=== PATIENT | female | born 1955 | race Caucasian/White ===

== ENCOUNTER 2016-09-27 12:34 | Inpatient (IN) | payer BC, MEDICARE ==
[~2016-09-27] VITALS: Ht 144.8 cm; Wt 63.5 kg
[~2016-09-27 12:34] MED LIST: ACIP20TA19 PO; AMOX875 PO; AZAT50 PO; BIAX500T PO; LORA-392 PO; LYRI50CA2 PO; OMEP20CA5 PO; PRED5 PO; SYMBICORT INH; TESS200C PO; TYLE500T PO; [UNRECOGNIZED DRUG - CODE] SQ
[2016-09-27 13:41] VITALS: BP 121/57; PULSE 101; RESP 16; TEMP 99.7; O2SAT 99
[2016-09-27] MEDS ORDERED: SODIUM CHLOR 0.9% 1000 ML INJ 1,000 ML IV SCH (13:57)
[2016-09-27] MEDS ORDERED: ONDANSETRON HCL 4 MG/2 ML VIAL IVP ONE (14:00)
[2016-09-27] MEDS ORDERED: SODIUM CHLORIDE 0.9% FLUSH 10 ML FLUSH IV FLUSH PRN ×2 (14:00→17:15)
--- NOTE | 2016-09-27 14:27 | PD ---
HPI Chief Complaint: Abdominal Pain Time Seen by Provider: 14:00 Travel History International Travel<30 days: No Contact w/Intl Traveler<30days: No Traveled to known affect area: No History of Present Illness HPI Patient comes in complaining of periumbilical abdominal pain that radiates throughout her abdomen that she awoke with around 2 AM today. Patient having associated generalized weakness, nausea, vomiting, and diarrhea. Patient denies any blood in vomit or diarrhea. Reports vomiting is nonbilious. Reports pain is crampy/burning like in nature throughout her abdomen. Patient states she does have lupus. Patient reports associated subjective fevers. Denies any chest pain, shortness of breath, loss change in bowel or bladder, headaches, or being around anyone else with similar. Patient reports she's had a cholecystectomy, small bowel resection secondary to obstruction, and hysterectomy. Patient is uncertain if she has had an appendectomy. PFSH Past Medical History Arthritis: No Asthma: No Autoimmune Disease: No Blood Disorders: No Anxiety: Yes Depression: Yes Heart Rhythm Problems: No Cancer: No Cardiovascular Problems: Yes (MVP) High Cholesterol: No Chemotherapy: No Chest Pain: No Congestive Heart Failure: No COPD: No Diabetes: No Diminished Hearing: No Endocrine: No Gastrointestinal Disorders: Yes GERD: Yes Glaucoma: No Hepatitis: No Hiatal Hernia: Yes Hypertension: No Immune Disorder: Yes (LUPUS SYSTEMIC) Kidney Stones: No Musculoskeletal: Yes (2004 COMPRESSION FX THORACI SPINE R 10TH VERTEBRAE) Neurologic: Yes Psychiatric: No Myocardial Infarction: No Radiation Therapy: No Renal Failure: Yes (LUPUS INVOLVING THE KIDNEYS 1979) Seizures: Yes (2004 zoloft AND EFFEXOR RELATED) Sickle Cell Disease: No Sleep Apnea: No Thyroid Disease: No Ulcer: No ?: Not Past Surgical History Abdominal Surgery: Yes (SM BOWEL RESECTION) AICD: No Cardiac Surgery: No Section: Yes Cholecystectomy: Yes Ear Surgery: No Endocrine Surgery: No Eye Surgery: No Genitourinary Surgery: No Gynecologic Surgery: Yes Hysterectomy: Yes Joint Replacement: No Oral Surgery: Yes (wisdom tooth extraction) Pacemaker: No Thoracic Surgery: No Social History Alcohol Use: No Tobacco Use: No (JUST QUIT ) Substance Use: No Allergies-Medications (Allergen,Severity, Reaction): Coded Allergies: Celexa (Verified Allergy, Severe, 09/27/16) Cipro (Verified Allergy, Severe, 09/27/16) Demerol (Verified Allergy, Severe, 09/27/16) Effexor (Verified Allergy, Severe, 09/27/16) Levaquin (Verified Allergy, Severe, 09/27/16) Phenergan (Verified Allergy, Severe, 09/27/16) SSRI-Serotonin Reuptake Inhib (Verified Allergy, Severe, 09/27/16) Sulfa (Verified Allergy, Severe, 09/27/16) Zoloft (Verified Allergy, Severe, 09/27/16) Reported Meds & Prescriptions Reported Meds & Active Scripts Active Reported Vitamin D3 (Cholecalciferol) 1,000 Unit Tab 1,000 Units PO DAILY Vitamin B Complex (B-Complex Vitamins) 1 Tab 1 Tab PO DAILY Ativan (Lorazepam) 0.5 Mg Tab 0.5 Mg PO DAILY PRN Ativan (Lorazepam) 1 Mg Tab 1 Mg PO HS Aleve (Naproxen Sodium) 220 Mg Tab 220 Mg PO BID Plaquenil (Hydroxychloroquine Sulfate) 200 Mg Tab 200 Mg PO BID Take with food Prednisone 5 Mg Tab 7.5 Mg PO DAILY Review of Systems Except as stated in HPI: all other systems reviewed are Neg Physical Exam Narrative GENERAL: Well-developed, overly nourished, in no acute distress, and non-ill appearing. SKIN: Focused skin assessment warm and dry. HEAD: Atraumatic. Normocephalic. EYES: Pupils equal and round. EOMI. No scleral icterus. No injection or drainage. ENT: No nasal bleeding or discharge. Mucous membranes pink and moist. NECK: Trachea midline. No JVD. Supple. No nuclear rigidity. CARDIOVASCULAR: Regular rate and rhythm. No murmur appreciated. RESPIRATORY: No accessory muscle use. No respiratory distress. Clear to auscultation. Breath sounds equal bilaterally. GASTROINTESTINAL: Abdomen soft, nondistended. Hepatic and splenic margins not palpable. Normal bowel sounds 4. No pulsatile mass. She reports tenderness throughout her abdomen to palpation. MUSCULOSKELETAL: No obvious deformities. No clubbing. No cyanosis. No edema. Full range of motion. NEUROLOGICAL: Awake and alert. No obvious cranial nerve deficits. Motor grossly within normal limits. Normal speech. PSYCHIATRIC: Appropriate mood and affect; insight and judgment normal. Data Data Last Documented VS Vital Signs Date Time Temp Pulse Resp B/P Pulse Ox O2 Delivery O2 Flow Rate FiO2 09/27/16 16:00 99.9 90 18 112/68 98 Room Air Orders Complete Blood Count With Diff (09/27/16 13:57) Comprehensive Metabolic Panel (09/27/16 13:57) Lipase (09/27/16 13:57) Prothrombin Time / Inr (Pt) (09/27/16 13:57) Act Partial Throm Time (Ptt) (09/27/16 13:57) Urinalysis - C+S If Indicated (09/27/16 13:57) Ct Abd/Pel W Iv Contrast(Rout) (09/27/16 13:57) Iv Access Insert/Monitor (09/27/16 13:57) Ecg Monitoring (09/27/16 13:57) Oximetry (09/27/16 13:57) Ondansetron Inj (Zofran Inj) (09/27/16 14:00) Sodium Chlor 0.9% 1000 Ml Inj (Ns 1000 M (09/27/16 13:57) Sodium Chloride 0.9% Flush (Ns Flush) (09/27/16 14:00) Electrocardiogram (09/27/16 13:57) Chest, Single Ap (09/27/16 13:57) Influenzae A/B Antigen (09/27/16 14:15) Potassium Phosphate Inj (Potassium Phosp (09/27/16 15:15) Potassium Chloride (Kcl) (09/27/16 15:15) Iohexol 350 Inj (Omnipaque 350 Inj) (09/27/16 15:39) Potassium Chlor 20 Meq Premix (Kcl 20 Me (09/27/16 16:15) Admit Order (Ed Use Only) (09/27/16 16:49) Sodium Chlor 0.9% 1... W/Potassium Chlor (09/27/16 17:00) Labs Laboratory Tests Test 09/27/16 14:21 White Blood Count 14.4 TH/MM3 Red Blood Count 4.86 MIL/MM3 Hemoglobin 15.5 GM/DL Hematocrit 45.4 % Mean Corpuscular Volume 93.4 FL Mean Corpuscular Hemoglobin 31.8 PG Mean Corpuscular Hemoglobin 34.0 % Concent Red Cell Distribution Width 15.0 % Platelet Count 355 TH/MM3 Mean Platelet Volume 7.0 FL Neutrophils (%) (Auto) 86.2 % Lymphocytes (%) (Auto) 3.1 % Monocytes (%) (Auto) 9.6 % Eosinophils (%) (Auto) 0.7 % Basophils (%) (Auto) 0.4 % Neutrophils # (Auto) 12.5 TH/MM3 Lymphocytes # (Auto) 0.4 TH/MM3 Monocytes # (Auto) 1.4 TH/MM3 Eosinophils # (Auto) 0.1 TH/MM3 Basophils # (Auto) 0.1 TH/MM3 CBC Comment DIFF FINAL Differential Comment Prothrombin Time 11.3 SEC Prothromb Time International 1.0 RATIO Ratio Activated Partial 27.1 SEC Thromboplast Time Sodium Level 139 MEQ/L Potassium Level 2.9 MEQ/L Chloride Level 106 MEQ/L Carbon Dioxide Level 23.0 MEQ/L Anion Gap 10 MEQ/L Blood Urea Nitrogen 16 MG/DL Creatinine 0.77 MG/DL Estimat Glomerular Filtration 77 ML/MIN Rate Random Glucose 95 MG/DL Calcium Level 8.2 MG/DL Total Bilirubin 0.6 MG/DL Aspartate Amino Transf 19 U/L (AST/SGOT) Alanine Aminotransferase 30 U/L (ALT/SGPT) Alkaline Phosphatase 67 U/L Total Protein 6.7 GM/DL Albumin 3.5 GM/DL Lipase 68 U/L [facility] Medical Decision Making Medical Screen Exam Complete: Yes Emergency Medical Condition: Yes Interpretation(s) EKG reviewed by Dr. Chen, shows sinus rhythm with ventricular rate of 98. No STEMI. Differential Diagnosis Gastroenteritis, electrolyte abnormality, appendicitis, small bowel obstruction , diverticulitis, colitis, gastroenteritis, other Narrative Course Patient is unable tolerate IV potassium order was changed to normal saline with potassium supplement. Patient seen and examined. Initial laboratory radiologic studies were obtained and reviewed with the exception of the UA and influenza that is currently pending. Discussed patient with Dr. Chen, who saw and evaluated patient and recommends having patient placed in observation secondary to abnormal findings. Patient was hydrated with IV fluids, potassium was replaced, given Zofran for nausea. Discussed all findings and plan of care with patient, was agreeable for admission. Dr. Chen spoke with the admitting physician Dr. Bellamy, who is agreeable to admit patient. Diagnosis Primary Impression: Enteritis Additional Impression: Hypokalemia Admitting Information Admitting Physician Requests: Observation Condition: Stable Juan Barba Sep 27, 2016 14:27
[2016-09-27 14:31] LABS: AUTOMATED NEUTROPHIL # 12.5 TH/MM3 (1.8-7.7); BASOPHIL # 0.1 TH/MM3 (0-0.2); BASOPHIL % 0.4 % (0.0-2.0); EOSINOPHIL # 0.1 TH/MM3 (0-0.4); EOSINOPHIL % 0.7 % (0.0-4.0); HEMATOCRIT 45.4 % (35.0-46.0); HEMO FLAGS DIFF FINAL; LYMPH % 3.1 % (9.0-44.0); LYMPHOCYTE # 0.4 TH/MM3 (1.0-4.8); MEAN CELL VOLUME 93.4 FL (80.0-100.0); MEAN CORPUSCULAR HEMOGLOBIN 31.8 PG (27.0-34.0); MONO % 9.6 % (0.0-8.0); NEUT % 86.2 % (16.0-70.0); PLATELET COUNT 355 TH/MM3 (150-450); RED BLOOD COUNT 4.86 MIL/MM3 (4.00-5.30); WHITE BLOOD COUNT 14.4 TH/MM3 (4.0-11.0)
[2016-09-27 14:45] LABS: APTT (PATIENT) 27.1 SEC (24.3-30.1); PROTHROMBIN TIME - PATIENT 11.3 SEC (9.8-11.6)
[2016-09-27 14:52] LABS: ALKALINE PHOSPHATASE 67 U/L (45-117); ALT (GPT) 30 U/L (10-53); ANION GAP 10 MEQ/L (5-15); AST (GOT) 19 U/L (15-37); BLOOD UREA NITROGEN 16 MG/DL (7-18); CHLORIDE 106 MEQ/L (98-107); GLOMERULAR FILTRATION RATE 77 ML/MIN (>89); SODIUM (NA) 139 MEQ/L (136-145); TOTAL BILIRUBIN ADULT 0.6 MG/DL (0.2-1.0)
[2016-09-27 14:59] LABS: POTASSIUM 2.9 MEQ/L (3.5-5.1)
[2016-09-27] MEDS ORDERED: POTASSIUM CHLORIDE 20 MEQ CONTROLLED RELEASE TAB PO ONE (15:15)
[2016-09-27] MEDS ORDERED: POTASSIUM PHOSPHATE INJ 15 MMOL in SODIUM CHLORIDE 0.9% INJ 150 ML IV ONE (15:15)
[2016-09-27] MEDS ORDERED: IOHEXOL 350 MG/ML 10 ML VIAL (for RAD DIAG) IV ONE (15:21)
[2016-09-27] MEDS ORDERED: IOHEXOL 350 MG/ML 100 ML BTL (for RAD DIAG) IV ONE (15:39)
[2016-09-27 16:00] VITALS: BP 112/68; PULSE 90; RESP 18; TEMP 99.9; O2SAT 98
--- NOTE | 2016-09-27 16:07 | RADRPT ---
EXAM DATE/TIME: 09/27/2016 15:21 [facility] COMPARISON: No previous studies available for comparison. INDICATIONS : Patient complains of nausea, vomiting, abdomen pain. IV CONTRAST: 100 cc Omnipaque 350 (iohexol) IV Injection Site: Rt AC Lot: [id number] Exp Date: Jun 2019 Lot: Exp Date : ORAL CONTRAST: No oral contrast ingested. RADIATION DOSE: 9.96 CTDIvol (mGy) MEDICAL HISTORY : Cardiovascular disease. Seizures. Hernia, hiatal. SURGICAL HISTORY : Hysterectomy. Cholecystectomy. ENCOUNTER: Initial ACUITY: 1 day PAIN SCALE: 7/10 LOCATION: Bilateral lower quadrant TECHNIQUE: Volumetric scanning of the abdomen and pelvis was performed. Using automated exposure control and ad justment of the mA and/or kV according to patient size, radiation dose was kept as low as reasonably achievable to obtain optimal diagnostic quality images. FINDINGS: LOWER LUNGS: The visualized lower lungs are clear. LIVER: 2 subcentimeter hypodensities are identified in the liver. One is located in the right lobe and the s econd in the left lobe. A small subcapsular hemangioma seen in the left lobe. Liver otherwise demonst rates normal density and enhancement. There is no dilation of the biliary tree. Gallbladder has been removed SPLEEN: Small calcified granuloma are seen in the spleen. Spleen is otherwise normal in size without lesion. PANCREAS: Within normal limits. KIDNEYS: Normal in size and shape. There is no mass, stone or hydronephrosis. ADRENAL GLANDS: Within normal limits. VASCULAR: There is no aortic aneurysm. BOWEL/MESENTERY: Increased fluid accumulation is seen in the intestinal tract. There is mild wall thickening with enha ncement throughout the small intestinal tract. There is loss of pathologic distention. There are no e xtraintestinal inflammatory changes. There is no evidence of free air. ABDOMINAL WALL: Midline suture from previous abdominal surgery is noted. RETROPERITONEUM: There is no lymphadenopathy. BLADDER: No wall thickening or mass. REPRODUCTIVE: Uterus has been removed. There are no central pelvic or adnexal masses INGUINAL: There is no lymphadenopathy or hernia. MUSCULOSKELETAL: Acute compression deformities are seen in the lower gastric spine. CONCLUSION: Mild wall thickening and enhancement of the small intestinal tract which may represen t an enteritis. No evidence of pathologic distention, extraluminal fluid collections or free air. Status post cholecystectomy and hysterectomy. Small hypodense lesions in the liver which are too small to characterize. Outpatient elective evaluat ion with MRI should be considered. Weston Han MD on September 27, 2016 at 15:49 Board Certified Radiologist. This report was verified electronically.
--- NOTE | 2016-09-27 16:19 | RADRPT ---
EXAM DATE/TIME: 09/27/2016 14:56 [facility] COMPARISON: No previous studies available for comparison. INDICATIONS : Fever, diarrhea and vomiting. MEDICAL HISTORY : Chronic obstructive pulmonary disease. SURGICAL HISTORY : None. ENCOUNTER: Initial ACUITY: 1 day PAIN SCORE: 0/10 LOCATION: Bilateral chest FINDINGS: There is a 9 mm oval opacity in the right upper lung. The remainder of the lungs are clear. No foca l infiltrates seen. The heart is normal in size. Both hemidiaphragms well delineated. CONCLUSION: 9 mm oval opacity projects over the right upper lung. Recommend further characterization and localiz ation with CT thorax without contrast. Gordon Luna MD on September 27, 2016 at 16:17 Board Certified Radiologist. This report was verified electronically.
[2016-09-27] MEDS: POTASSIUM CHLOR 20 MEQ PREMIX 100 ML IV SCH ×2 (16:29→17:00)
[2016-09-27] MEDS ORDERED: ACETAMINOPHEN 500 MG CPLT PO ONE (17:00)
[2016-09-27] MEDS: SODIUM CHLOR 0.9% 1000 ML INJ 1,000 ML IV SCH (17:09)
--- NOTE | 2016-09-27 17:13 | PD ---
Data Data Last Documented VS Vital Signs Date Time Temp Pulse Resp B/P Pulse Ox O2 Delivery O2 Flow Rate FiO2 09/27/16 16:00 99.9 90 18 112/68 98 Room Air Orders Complete Blood Count With Diff (09/27/16 13:57) Comprehensive Metabolic Panel (09/27/16 13:57) Lipase (09/27/16 13:57) Prothrombin Time / Inr (Pt) (09/27/16 13:57) Act Partial Throm Time (Ptt) (09/27/16 13:57) Urinalysis - C+S If Indicated (09/27/16 13:57) Ct Abd/Pel W Iv Contrast(Rout) (09/27/16 13:57) Iv Access Insert/Monitor (09/27/16 13:57) Ecg Monitoring (09/27/16 13:57) Oximetry (09/27/16 13:57) Ondansetron Inj (Zofran Inj) (09/27/16 14:00) Sodium Chlor 0.9% 1000 Ml Inj (Ns 1000 M (09/27/16 13:57) Sodium Chloride 0.9% Flush (Ns Flush) (09/27/16 14:00) Electrocardiogram (09/27/16 13:57) Chest, Single Ap (09/27/16 13:57) Influenzae A/B Antigen (09/27/16 14:15) Potassium Phosphate Inj (Potassium Phosp (09/27/16 15:15) Potassium Chloride (Kcl) (09/27/16 15:15) Iohexol 350 Inj (Omnipaque 350 Inj) (09/27/16 15:39) Potassium Chlor 20 Meq Premix (Kcl 20 Me (09/27/16 16:15) Admit Order (Ed Use Only) (09/27/16 16:49) Sodium Chlor 0.9% 1... W/Potassium Chlor (09/27/16 17:00) Labs Laboratory Tests Test 09/27/16 14:21 White Blood Count 14.4 TH/MM3 Red Blood Count 4.86 MIL/MM3 Hemoglobin 15.5 GM/DL Hematocrit 45.4 % Mean Corpuscular Volume 93.4 FL Mean Corpuscular Hemoglobin 31.8 PG Mean Corpuscular Hemoglobin 34.0 % Concent Red Cell Distribution Width 15.0 % Platelet Count 355 TH/MM3 Mean Platelet Volume 7.0 FL Neutrophils (%) (Auto) 86.2 % Lymphocytes (%) (Auto) 3.1 % Monocytes (%) (Auto) 9.6 % Eosinophils (%) (Auto) 0.7 % Basophils (%) (Auto) 0.4 % Neutrophils # (Auto) 12.5 TH/MM3 Lymphocytes # (Auto) 0.4 TH/MM3 Monocytes # (Auto) 1.4 TH/MM3 Eosinophils # (Auto) 0.1 TH/MM3 Basophils # (Auto) 0.1 TH/MM3 CBC Comment DIFF FINAL Differential Comment Prothrombin Time 11.3 SEC Prothromb Time International 1.0 RATIO Ratio Activated Partial 27.1 SEC Thromboplast Time Sodium Level 139 MEQ/L Potassium Level 2.9 MEQ/L Chloride Level 106 MEQ/L Carbon Dioxide Level 23.0 MEQ/L Anion Gap 10 MEQ/L Blood Urea Nitrogen 16 MG/DL Creatinine 0.77 MG/DL Estimat Glomerular Filtration 77 ML/MIN Rate Random Glucose 95 MG/DL Calcium Level 8.2 MG/DL Total Bilirubin 0.6 MG/DL Aspartate Amino Transf 19 U/L (AST/SGOT) Alanine Aminotransferase 30 U/L (ALT/SGPT) Alkaline Phosphatase 67 U/L Total Protein 6.7 GM/DL Albumin 3.5 GM/DL Lipase 68 U/L [facility] Supervised Visit with MICHAEL: Yes Narrative Course The history, exam, and medical decision-making in the associated mid-level provider note were completed with my assistance. I reviewed and agree with the findings presented. I attest that I had a [id number] encounter with the patient on the same day, and personally performed and documented my assessment and findings in the medical record. *My assessment and Findings: 60 year-old woman who presents to the emergency department with abdominal pain and vomiting. She is a history of lupus. She steroid-dependent. She also on plaque without. She has history of small bowel structure requiring surgery after hysterectomy. She also had unusual bacillus sounds like ileus that was fairly protracted, attributed to her lupus, and for which she took octreotide for several months. She states she still has trouble this from time to time. She started getting symptoms and started using chicken broth. She states this happens periodically. Symptoms worsened today and so she came in. Labs reveal hypokalemia. CT scan shows nonspecific small bowel thickening. Will admit patient for observation and treatment. Kiran Chen MD Sep 27, 2016 17:13
[2016-09-27] MEDS ORDERED: MAGNESIUM HYDROXIDE SUSP 30 ML CUP PO PRN (17:15)
[2016-09-27 17:17] VITALS: O2SAT 100
[2016-09-27] MEDS ORDERED: NAPR220T95 PO (17:29)
[2016-09-27] MEDS ORDERED: PRED5TAB PO (17:29)
[2016-09-27] MEDS ORDERED: LORA-392 PO (17:29)
[2016-09-27] MEDS ORDERED: VITA100018 PO (17:29)
[2016-09-27] MEDS ORDERED: VITATAB11 PO (17:29)
[2016-09-27] MEDS ORDERED: LORA-474 PO (17:29)
[2016-09-27] MEDS ORDERED: PLAQ200T PO (17:29)
[2016-09-27] MEDS: POTASSIUM CHLORIDE INJ 30 MEQ in SODIUM CHLOR 0.9% 1000 ML INJ 1,000 ML IV SCH (17:55)
[2016-09-27 20:04] VITALS: BP 117/61; PULSE 83; RESP 18; O2SAT 98
[2016-09-27] MEDS: DOCUSATE SODIUM 100 MG CAP PO SCH (20:42)
[2016-09-27] MEDS: SODIUM CHLORIDE 0.9% FLUSH 10 ML FLUSH IV FLUSH SCH (20:42)
[2016-09-27 22:14] LABS: BACTERIA, URINE OCC /hpf; BLOOD, URINE SMALL (NEG); COMMENT (UR) CULT NOT INDICATED; CULTURE IF INDICATED CULT NOT INDICATED; GLUCOSE,URINE NEG (NEG); HYALINE CAST, URINE 2 /lpf (RARE); KETONE, URINE 10 mg/dL (NEG); MUCUS URINE FEW /lpf (OCC); NITRITE,URINE NEG (NEG); PH, URINE 5.5 (5.0-8.5); SQUAMOUS EPITHELIAL CELL URINE 1 /hpf (0-5); URINE COLOR YELLOW (YELLW/STRAW)
[2016-09-27] MEDS: ONDANSETRON HCL 4 MG/2 ML VIAL IVP PRN (22:24)
[2016-09-27] MEDS: ACETAMINOPHEN 325 MG TAB PO PRN (22:25)
[2016-09-27 23:27] LABS: C. DIFF EPI 027 PRESUMPTIVE NEGATIVE (NEGATIVE); C. DIFF TOXIN PCR NEGATIVE (NEGATIVE)
--- NOTE | 2016-09-27 23:30 | EKG ---
Date Performed: 09/27/2016 Time Performed: 14:54:54 PTAGE: 60 years EKG: Sinus rhythm POSSIBLE RIGHT VENTRICULAR HYPERTROPHY POSSIBLE ANTERIOR MYOCARDIAL INFARCTION ABNORMAL ECG PREVIOUS TRACING : 03/10/2012 20.30 Compared to the previous tracing, rate has increased DOCTOR: Kwadwo Chamorro Interpretating Date/Time 09/27/2016 23:29:42
[2016-09-28] VITALS (8 sets, daily range): BP systolic 98–123; BP diastolic 51–62; PULSE 66–90; RESP 18–21; TEMP 97.5–98.8; O2SAT 98–99
[2016-09-28 01:23] LABS: BICARBONATE 24.3 MEQ/L (21.0-32.0); MAGNESIUM 1.9 MG/DL (1.5-2.5); POTASSIUM 3.2 MEQ/L (3.5-5.1)
[2016-09-28] MEDS ORDERED: POTASSIUM CHLORIDE 25 MEQ EFFERVESCENT TAB PO ONE (02:15)
[2016-09-28] MEDS: SODIUM CHLOR 0.9% 1000 ML INJ 1,000 ML IV SCH ×3 (03:28→23:23)
[2016-09-28] MEDS: ONDANSETRON HCL 4 MG/2 ML VIAL IVP PRN ×2 (04:38→11:07)
[2016-09-28] MEDS: DOCUSATE SODIUM 100 MG CAP PO SCH ×2 (08:00→20:02)
[2016-09-28 08:28] LABS: ALKALINE PHOSPHATASE 65 U/L (45-117); ALT (GPT) 27 U/L (10-53); ANION GAP 11 MEQ/L (5-15); AST (GOT) 18 U/L (15-37); BICARBONATE 24.3 MEQ/L (21.0-32.0); BLOOD UREA NITROGEN 11 MG/DL (7-18); CHLORIDE 103 MEQ/L (98-107); GLOMERULAR FILTRATION RATE 74 ML/MIN (>89); POTASSIUM 3.6 MEQ/L (3.5-5.1); SODIUM (NA) 138 MEQ/L (136-145); TOTAL BILIRUBIN ADULT 0.6 MG/DL (0.2-1.0)
[2016-09-28] MEDS ORDERED: LORazepam 0.5 MG TAB PO PRN (08:45)
[2016-09-28] MEDS: SODIUM CHLORIDE 0.9% FLUSH 10 ML FLUSH IV FLUSH SCH ×2 (09:00→20:03)
[2016-09-28] MEDS ORDERED: METOCLOPRAMIDE HCL 10 MG/2 ML VIAL IV PUSH ONE (09:00)
[2016-09-28] MEDS: predniSONE 5 MG TAB PO SCH (10:42)
[2016-09-28] MEDS ORDERED: METOCLOPRAMIDE HCL 10 MG/2 ML VIAL IV PUSH PRN (13:15)
[2016-09-28] MEDS: LACTOBACILLUS ACIDOPHILUS 1 GM PACKET PO SCH ×2 (14:40→19:32)
--- NOTE | 2016-09-28 15:38 | PD.CONS ---
HPI History of Present Illness This is a 60 year old female who came to the ER for evaluation of N/V/D. Her symptoms began suddenly yesterday at 2am. She was awakened from her sleep at 2am and had the sudden urge to move her bowels and went to the bathroom and had nausea/vomiting, consisting of yellow bilious material, diarrhea- liquid yellowish/brown stool. She had a fever of 101 and chills and diaphoresis. She also has associated pain that she describes as a dull ache without radiation. This is aggravated by any po intake. Her N/V/D was pretty constant up until 11am, when she decided to come to the ER for further evaluation. She reports that because of the N/V/D, her potassium was low and she was having cardiac arrhythmias and chest discomfort. She reports that this has since subsided. She denies any recent weight loss and states she was feeling fine up until yesterday. On Monday, she went out to eat and had flores. Her did not eat the same thing and is feeling fine. Her daughter has also been having similar symptoms. She was on antibiotics (doxcycline) in July for a skin infection. She has not recently traveled. She has had CDiff in the past, 3-4 times in the past (she cannot recall when the last episode was, but does state that it was several years ago and that she was treated with Flagyl). 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 She took this for 6-7 years and states that she no longer needed this and therefore she was taken off of this. During that time, she reports that she could not eat anything and nothing would go down. She had a GES prior to this and it was negative. She states that at that time, she could not digest any food. She was seen by Dr. Simpson, but states that he no longer accepted her insurance and therefore she started seeing Dr. Lackey in [place]. Her last colonoscopy was May of 2015 and she reports that she had a few precancerous polyps removed and that she needed to have a repeat in 5 years. She also had an endoscopy done at that time and it showed gastritis. She does not currently take any medications for this. She also has a hx of bowel obstruction secondary to adhesions. She takes Plaquenil, Prednisone, Aleve for her Lupus. (Ana Charlton) PFSH Past Medical History Hx SB Dysmotility Gastritis Hx precancerous polyps Lupus Mild COPD Bowel obstruction related to adhesions in 1980 Past Surgical History EGD/Colonoscopy SB Manomatry Cholecystectomy Laparoscopy with SUSANNE Cataract surgery SB resection for SBO secondary to adhesions (Ana Charlton) Coded Allergies: Celexa (Verified Allergy, Severe, 09/27/16) Cipro (Verified Allergy, Severe, 09/27/16) Demerol (Verified Allergy, Severe, 09/27/16) Effexor (Verified Allergy, Severe, 09/27/16) Levaquin (Verified Allergy, Severe, 09/27/16) Phenergan (Verified Allergy, Severe, 09/27/16) SSRI-Serotonin Reuptake Inhib (Verified Allergy, Severe, 09/27/16) Sulfa (Verified Allergy, Severe, 09/27/16) Zoloft (Verified Allergy, Severe, 09/27/16) Medications Allergies Coded Allergies Type Severity Reaction Last Updated Verified Celexa Allergy Severe 09/27/16 Yes Cipro Allergy Severe 09/27/16 Yes Demerol Allergy Severe 09/27/16 Yes Effexor Allergy Severe 09/27/16 Yes Levaquin Allergy Severe 09/27/16 Yes Phenergan Allergy Severe 09/27/16 Yes SSRI-Serotonin Reuptake Inhib Allergy Severe 09/27/16 Yes Sulfa Allergy Severe 09/27/16 Yes Zoloft Allergy Severe 09/27/16 Yes Active Scripts Medications Dose Route/Sig Days Date Category Dose Instructions Vitamin D3 (Cholecalciferol) 1,000 Unit Tab 1,000 Units PO DAILY 09/27/16 Reported Vitamin B Complex (B-Complex Vitamins) 1 Tab 1 Tab PO DAILY 09/27/16 Reported Ativan (Lorazepam) 0.5 Mg Tab 0.5 Mg PO DAILY PRN 09/27/16 Reported Ativan (Lorazepam) 1 Mg Tab 1 Mg PO HS 09/27/16 Reported Aleve (Naproxen Sodium) 220 Mg Tab 220 Mg PO BID 09/27/16 Reported Plaquenil (Hydroxychloroquine Sulfate) 200 Mg Tab 200 Mg PO BID 09/27/16 Reported Take with food Prednisone 5 Mg Tab 7.5 Mg PO DAILY 09/27/16 Reported Family History Father from GI Malignancy, esophageal cancer with mets to liver. Mother had CAD, DM. Social History Smokes 1/2- 1PPD No ETOH. (Ana Charlton Irlanda RODRIGUEZ) Review of Systems Constitutional: COMPLAINS OF: Fatigue, Fever, Chills, DENIES: Weight loss Respiratory: DENIES: Cough, Shortness of breath Cardiovascular: COMPLAINS OF: Chest pain, DENIES: Palpitations, Syncope Gastrointestinal: COMPLAINS OF: Abdominal pain, Diarrhea, Nausea, Vomiting, DENIES: Black stools, Bloody stools, Constipation, Swelling of Abdomen, Heartburn, Hematemesis Musculoskeletal: COMPLAINS OF: Joint pain Integumentary: DENIES: Rash Hematologic/lymphatic: DENIES: Bruising Neurologic: DENIES: Headache (CharltonAna) GI Exam Vitals I&O Vital Signs Date Time Temp Pulse Resp B/P Pulse Ox O2 Delivery O2 Flow Rate FiO2 09/28/16 12:28 98.4 81 21 107/57 99 09/28/16 07:38 97.5 90 18 98/51 99 09/28/16 06:11 Nasal Cannula 2.00 09/28/16 02:50 69 09/28/16 00:10 20 09/27/16 20:04 83 18 117/61 98 Room Air 09/27/16 17:17 100 21 09/27/16 16:00 99.9 90 18 112/68 98 Room Air I/O 09/27/16 09/27/16 09/27/16 09/28/16 09/28/16 09/28/16 07:00 15:00 23:00 07:00 15:00 23:00 Intake Total 220 ml Output Total 2 ml Balance 218 ml Intake Oral 220 ml Output Urine Total 2 ml # Bowel Movements 3 Imaging Last Impressions Chest X-Ray 09/27/16 1357 Signed Impressions: Service Date/Time: Tuesday, September 27, 2016 14:56 - CONCLUSION: 9 mm oval opacity projects over the right upper lung. Recommend further characterization and localization with CT thorax without contrast. Gordon Luna MD Abdomen/Pelvis CT 09/27/16 [id number] Signed Impressions: Service Date/Time: Tuesday, September 27, 2016 15:21 - CONCLUSION: Mild wall thickening and enhancement of the small intestinal tract which may represent an enteritis. No evidence of pathologic distention, extraluminal fluid collections or free air. Status post cholecystectomy and hysterectomy. Small hypodense lesions in the liver which are too small to characterize. Outpatient elective evaluation with MRI should be considered. Weston Han MD Laboratory Test 09/27/16 09/28/16 09/28/16 21:40 00:49 06:32 Urine Color YELLOW Urine Turbidity CLEAR Urine pH 5.5 Urine Specific [place] GREATER THAN 1.050 Urine Protein TRACE mg/dL Urine Glucose (UA) NEG mg/dL Urine Ketones 10 mg/dL Urine Occult Blood SMALL Urine Nitrite NEG Urine Bilirubin NEG Urine Urobilinogen LESS THAN 2.0 MG/DL Urine Leukocyte Esterase SMALL Urine RBC 2 /hpf Urine WBC 2 /hpf Urine Squamous Epithelial 1 /hpf Cells Urine Bacteria OCC /hpf Urine Hyaline Casts 2 /lpf Urine Mucus FEW /lpf Microscopic Urinalysis Comment CULT NOT INDICATED Stool C. difficile Toxin (PCR) NEGATIVE Stl C. difficile Toxin PRESUMPTIVE Epiderm 027 NEGATIVE Sodium Level 139 MEQ/L 138 MEQ/L Potassium Level 3.2 MEQ/L 3.6 MEQ/L Chloride Level 106 MEQ/L 103 MEQ/L Carbon Dioxide Level 24.3 MEQ/L 24.3 MEQ/L Anion Gap 9 MEQ/L 11 MEQ/L Blood Urea Nitrogen 13 MG/DL 11 MG/DL Creatinine 0.68 MG/DL 0.80 MG/DL Estimat Glomerular Filtration 89 ML/MIN 74 ML/MIN Rate Random Glucose 76 MG/DL 59 MG/DL Calcium Level 7.9 MG/DL 8.2 MG/DL Magnesium Level 1.9 MG/DL Total Bilirubin 0.6 MG/DL Aspartate Amino Transf 18 U/L (AST/SGOT) Alanine Aminotransferase 27 U/L (ALT/SGPT) Alkaline Phosphatase 65 U/L Total Protein 6.5 GM/DL Albumin 3.1 GM/DL Date/Time Procedure Status Source Growth 09/27/16 16:50 Influenza Types A,B Antigen (STEFFEN) - Final Complete Nasal Washing NEGATIVE FOR FLU A AND B ANTIGEN.... Physical Examination HEENT: Normocephalic; atraumatic; no jaundice. CHEST: CTA. CARDIAC: RRR. ABDOMEN: Soft, nondistended, very mild diffuse tenderness; no hepatosplenomegaly; bowel sounds are present in all four quadrants. EXTREMITIES: No clubbing, cyanosis, or edema. SKIN: Normal; no rash; no jaundice. MEDIA ARTS PROFESSOR: No focal deficits; alert and oriented times three. (Ana Charlton FRIEND OF THE COURT) Assessment and Plan Plan ASSESSMENT: - Gastroenteritis, N/V/D, Abdominal pain. Sudden onset yesterday 2am with N/V/D , Abdominal pain. Ate out Monday night and had flores. Her daughter also has had GI issues since eating out Monday. Pt has associated fevers, chills, diaphoresis. Abdomen/Pelvis CT (09/27/16)----> Mild wall thickening and enhancement of the small intestinal tract which may represent an enteritis. No evidence of pathologic distention, extraluminal fluid collections for free air. Status post cholecystectomy and hysterectomy. Small hypodense lesions in the liver which are too small to characterize. Outpatient elective evaluation with MRI should be considered. She does have hx of Cdiff in past- last few years ago She was recently on Doxycycline in July for skin infection. No travel. + Suspicious food. + Suspicious sick contact. WBC 14.4. CDiff negative. Will get stool studies, add Flagyl, IVF. PPI. - Leukocytosis. WBC 14.4. Is on chronic steroids and it is unclear at this time , if this is reactive, inflammatory, or related infection. - Hypokalemia, improved. - Lupus. Followed by Dr. Mark. She takes Plaquenil, Prednisone, Aleve for this at home. - Hx Small bowel dysmotility, diagnosed in 2005 at [facility] by SB Manometry. She was given octreotide injections to stimulate her bowel (2005). She took this for 6-7 years and states that she no longer needed this and therefore she was taken off of this. She had a GES prior to this and it was negative. She was seen by Dr. Simpson, but states that he no longer accepted her insurance and therefore she started seeing Dr. Lackey in [place]. Her last colonoscopy was May of 2015 and she reports that she had a few precancerous polyps removed and that she needed to have a repeat in 5 years. She also had an endoscopy done at that time and it showed gastritis. PLAN: - Clear liquids - Add Flagyl - PPI - IVF - Send stools for C/S, O&P, Giardia, WBC - Monitor labs - Supportive care - Further recommendations to follow based on results of above - PT seen and examined by Dr. Mcdonough and myself and this note is written on her behalf (Ana Charlton) Physician Comments SEEN, EXAMINED AGREE WITH ABOVE CONSIDER MRA/ MRENTEROGRAPHY IF NOT BETTER (Ita Mcdonough MD) Ana Charlton Sep 28, 2016 15:38 Ita Mcdonough MD Sep 28, 2016 16:38
--- NOTE | 2016-09-28 15:58 | HHI.HP ---
[facility] Service [facility] Primary Care Physician Non-Staff Admission Diagnosis enteritis, hypokalemia Diagnoses: Chief Complaint: abd pain, n/v/d Travel History International Travel<30 Days: No Contact w/Intl Traveler <30 Da: No Traveled to Known Affected Are: No History of Present Illness 60 y/o patient with a history of Lupus, Small bowel dysmotility and COPD presented to the ED with complaints of nausea, vomiting, diarrhea, and abdominal pain since 2AM on Monday. She states she was having some nausea on Monday. Monday she began to have liquid diarrhea multiple times a day, and vomiting bile. She vomited this morning after breakfast because she ate a regular diet and did not tolerate it. She states she felt feverish this morning with chills, also complains of abdominal tightening and cramping in her lower abdomen. She currently states she feels a little better and has been able to keep her liquid lunch down. Review of Systems Constitutional: COMPLAINS OF: Fever, Chills, DENIES: Weight loss, Dizziness Respiratory: DENIES: Cough, Sputum production, Shortness of breath Cardiovascular: DENIES: Chest pain Gastrointestinal: COMPLAINS OF: Abdominal pain, Diarrhea, Nausea, Vomiting Musculoskeletal: DENIES: Back pain, Neck pain Integumentary: DENIES: Rash Hematologic/lymphatic: DENIES: Lymphadenopathy Neurologic: DENIES: Headache Past Family Social History Past Medical History SB Dysmotility Gastritis Hx precancerous polyps Lupus COPD, O2 at night Bowel obstruction related to adhesions in 1980 Past Surgical History Small bowel resection from bowel obstruction after Cholecystectomy Laparoscopy with SUSANNE Cataract surgery Appendectomy Hysterectomy Reported Medications Reported Meds & Active Scripts Active Reported Vitamin D3 (Cholecalciferol) 1,000 Unit Tab 1,000 Units PO DAILY Vitamin B Complex (B-Complex Vitamins) 1 Tab 1 Tab PO DAILY Ativan (Lorazepam) 0.5 Mg Tab 0.5 Mg PO DAILY PRN Ativan (Lorazepam) 1 Mg Tab 1 Mg PO HS Aleve (Naproxen Sodium) 220 Mg Tab 220 Mg PO BID Plaquenil (Hydroxychloroquine Sulfate) 200 Mg Tab 200 Mg PO BID Take with food Prednisone 5 Mg Tab 7.5 Mg PO DAILY Allergies: Coded Allergies: Celexa (Verified Allergy, Severe, 09/27/16) Cipro (Verified Allergy, Severe, 09/27/16) Demerol (Verified Allergy, Severe, 09/27/16) Effexor (Verified Allergy, Severe, 09/27/16) Levaquin (Verified Allergy, Severe, 09/27/16) Phenergan (Verified Allergy, Severe, 09/27/16) SSRI-Serotonin Reuptake Inhib (Verified Allergy, Severe, 09/27/16) Sulfa (Verified Allergy, Severe, 09/27/16) Zoloft (Verified Allergy, Severe, 09/27/16) Active Ordered Medications Current Medications Medications (Trade) Dose Ordered Sig/Anurag Route Start Time Stop Time Status Last Admin Potassium Chloride 30 meq/ Sodium Chloride 1,015 ml @ 42 mls/hr Q24H IV 09/27/16 17:00 09/27/16 17:55 (NS 1000 ml Inj) 1,000 ml @ 100 mls/hr Q10H IV 09/27/16 17:09 09/28/16 14:41 (NS Flush) 2 ml UNSCH PRN IV FLUSH 09/27/16 17:15 (NS Flush) 2 ml BID IV FLUSH 09/27/16 21:00 09/28/16 09:00 (Tylenol) 650 mg Q4H PRN PO 09/27/16 17:15 09/27/16 22:25 (Zofran Inj) 4 mg Q6H PRN IVP 09/27/16 17:15 09/28/16 11:07 (Colace) 100 mg Q12H PO 09/27/16 20:00 (Milk Of Magnesia Liq) 30 ml Q12H PRN PO 09/27/16 17:15 (Ativan) 0.5 mg DAILY PRN PO 09/28/16 08:45 (Deltasone) 7.5 mg DAILY PO 09/28/16 10:00 09/28/16 10:42 (Lactinex Pkt) 1 gm TID PO 09/28/16 13:00 09/28/16 14:40 (Reglan Inj) 5 mg Q8HR PRN IV PUSH 09/28/16 13:15 09/28/16 14:07 Family History Father from GI Malignancy, esophageal cancer with mets to liver. Mother had CAD, DM. Social History Tobacco use: 1/2 PPD Alcohol use: Denies Illicit drug use: Denies Physical Exam Vital Signs Vital Signs Date Time Temp Pulse Resp B/P Pulse Ox O2 Delivery O2 Flow Rate FiO2 09/28/16 12:28 98.4 81 21 107/57 99 09/28/16 07:38 97.5 90 18 98/51 99 09/28/16 06:11 Nasal Cannula 2.00 09/28/16 02:50 69 09/28/16 00:10 20 09/27/16 20:04 83 18 117/61 98 Room Air 09/27/16 17:17 100 21 09/27/16 16:00 99.9 90 18 112/68 98 Room Air Physical Exam GENERAL: This is a well-nourished, well-developed patient, in no apparent distress. SKIN: No rashes, ecchymoses or lesions. Cool and dry. HEAD: Atraumatic. Normocephalic. No temporal or scalp tenderness. EYES: Pupils equal round and reactive. Extraocular motions intact. No scleral icterus. No injection or drainage. ENT: Nose without bleeding, purulent drainage or septal hematoma. Airway patent. NECK: Trachea midline. No JVD. Supple, nontender, no meningeal signs. CARDIOVASCULAR: Regular rate and rhythm without murmurs, gallops, or rubs. RESPIRATORY: Clear to auscultation. Breath sounds equal bilaterally. No wheezes , rales, or rhonchi. GASTROINTESTINAL: Abdomen soft, tender, nondistended. No hepato-splenomegaly, or palpable masses. No guarding. MUSCULOSKELETAL: Extremities without clubbing, cyanosis, or edema. No joint tenderness, effusion, or edema noted. No calf tenderness. NEUROLOGICAL: Awake and alert. Motor and sensory grossly within normal limits. Five out of 5 muscle strength in all muscle groups. Normal speech. Laboratory Laboratory Tests Test 09/27/16 09/28/16 09/28/16 21:40 00:49 06:32 Urine Color YELLOW Urine Turbidity CLEAR Urine pH 5.5 Urine Specific [place] GREATER THAN 1.050 Urine Protein TRACE Urine Glucose (UA) NEG Urine Ketones 10 Urine Occult Blood SMALL Urine Nitrite NEG Urine Bilirubin NEG Urine Urobilinogen LESS THAN 2.0 Urine Leukocyte Esterase SMALL Urine RBC 2 Urine WBC 2 Urine Squamous Epithelial 1 Cells Urine Bacteria OCC Urine Hyaline Casts 2 Urine Mucus FEW Microscopic Urinalysis Comment CULT NOT INDICATED Stool C. difficile Toxin (PCR) NEGATIVE Stl C. difficile Toxin PRESUMPTIVE Epiderm 027 NEGATIVE Sodium Level 139 138 Potassium Level 3.2 3.6 Chloride Level 106 103 Carbon Dioxide Level 24.3 24.3 Anion Gap 9 11 Blood Urea Nitrogen 13 11 Creatinine 0.68 0.80 Estimat Glomerular Filtration 89 74 Rate Random Glucose 76 59 Calcium Level 7.9 8.2 Magnesium Level 1.9 Total Bilirubin 0.6 Aspartate Amino Transf 18 (AST/SGOT) Alanine Aminotransferase 27 (ALT/SGPT) Alkaline Phosphatase 65 Total Protein 6.5 Albumin 3.1 Date/Time Procedure Status Source Growth 09/27/16 16:50 Influenza Types A,B Antigen (STEFFEN) - Final Complete Nasal Washing NEGATIVE FOR FLU A AND B ANTIGEN.... Imaging Last Impressions Chest X-Ray 09/27/16 [id number] Signed Impressions: Service Date/Time: Tuesday, September 27, 2016 14:56 - CONCLUSION: 9 mm oval opacity projects over the right upper lung. Recommend further characterization and localization with CT thorax without contrast. Gordon Luna MD Abdomen/Pelvis CT 09/27/16 [id number] Signed Impressions: Service Date/Time: Tuesday, September 27, 2016 15:21 - CONCLUSION: Mild wall thickening and enhancement of the small intestinal tract which may represent an enteritis. No evidence of pathologic distention, extraluminal fluid collections or free air. Status post cholecystectomy and hysterectomy. Small hypodense lesions in the liver which are too small to characterize. Outpatient elective evaluation with MRI should be considered. Weston Han MD Assessment and Plan Problem List: (1) Enteritis ICD Code: K52.9 Status: Acute (2) Hypokalemia ICD Code: E87.6 Status: Resolved (3) COPD (chronic obstructive pulmonary disease) ICD Code: J44.9 Status: Chronic Assessment and Plan 60 y/o patient with a history of Lupus, Small bowel dysmotility and COPD presented to the ED with complaints of nausea, vomiting, diarrhea, and abdominal pain for 1 day. Enteritis, c diff negative Abdominal CT shows Mild wall thickening and enhancement of the small intestinal tract which may represent an enteritis. No evidence of pathologic distention, extraluminal fluid collections or free air. Status post cholecystectomy and hysterectomy. Small hypodense lesions in the liver which are too small to characterize. -Gentle hydration -Consult GI for recommendations -Flagyl ordered by GI -Follow up outpatient for lesions found on liver. -Will admit to inpatient due to continued nausea/vomiting and hx of lupus Hypokalemia Potassium 2.9-->3.2-->3.6 -Cont IVF, replace as needed -BMP in AM COPD, chronic -Cont home medications Pulmicort, and Proair -Oxygen HS 2L Abnormal chest x ray Chest x-ray shows 9 mm oval opacity projects over the right upper lung. -Follow up outpatient, results discussed with patient DVT prophylaxis: SCDs Written by JENNIFER Denny acting as Scribe for Dr. Sauceda on 09/28/16 at 1545. Discussed Condition With Patient and patients Medical Decision Making MDM Remarks This note was transcribed by scribe Sonja Springer. I, Dr. Stacey Sauceda personally performed the history, physical exam, and medical decision making; and confirmed the accuracy of the information in the transcribed note. Sonja Springer Sep 28, 2016 15:58 Stacey Sauceda MD October 11, 2016 10:31
[2016-09-28] MEDS ORDERED: ALBUTEROL SULFATE 90 MCG/ACT HFA 8 GM INHALER INH PRN (16:15)
[2016-09-28] MEDS ORDERED: PANTOPRAZOLE SODIUM 40 MG VIAL IV PUSH SCH (17:00)
[2016-09-28] MEDS: metroNIDAZOLE 500 MG INJ 100 ML IV SCH (18:53)
[2016-09-28 19:18] LABS: AUTOMATED NEUTROPHIL # 6.1 TH/MM3 (1.8-7.7); BASOPHIL % 0.4 % (0.0-2.0); EOSINOPHIL % 0.2 % (0.0-4.0); HEMO FLAGS DIFF FINAL; LYMPH % 14.7 % (9.0-44.0); LYMPHOCYTE # 1.2 TH/MM3 (1.0-4.8); MEAN CELL VOLUME 94.3 FL (80.0-100.0); MEAN CORPUSCULAR HEMOGLOBIN 31.9 PG (27.0-34.0); MEAN CORPUSCULAR HGB CONC 33.8 % (32.0-36.0); MONO % 7.2 % (0.0-8.0); NEUT % 77.5 % (16.0-70.0); PLATELET COUNT 324 TH/MM3 (150-450); RED BLOOD COUNT 4.77 MIL/MM3 (4.00-5.30); RED CELL DISTRIBUTION WIDTH 14.7 % (11.6-17.2); WHITE BLOOD COUNT 7.9 TH/MM3 (4.0-11.0)
[2016-09-28] MEDS ORDERED: LORazepam 1 MG TAB PO SCH (21:00)
[2016-09-28] MEDS: RESP: BUDESONIDE 0.25 MG/2 ML NEB NEB SCH (21:03)
[2016-09-28] MEDS: ALBUTEROL SULFATE 90 MCG/ACT HFA 18 GM INHALER INH PRN (21:19)
[2016-09-28] MEDS: HYDROXYCHLOROQUINE SULFATE 200 MG TAB PO SCH (21:21)
[2016-09-28] MEDS: ACETAMINOPHEN 325 MG TAB PO PRN (21:21)
[2016-09-28] MEDS: POTASSIUM CHLORIDE INJ 30 MEQ in SODIUM CHLOR 0.9% 1000 ML INJ 1,000 ML IV SCH (21:38)
[2016-09-29 00:21] VITALS: BP 99/60; PULSE 60; RESP 20; TEMP 97.8; O2SAT 100
[2016-09-29] MEDS: metroNIDAZOLE 500 MG INJ 100 ML IV SCH ×2 (01:04→09:04)
[2016-09-29 03:57] VITALS: BP 97/53; PULSE 61; RESP 20; TEMP 98; O2SAT 99
[2016-09-29 08:05] VITALS: BP 101/57; PULSE 66; RESP 18; TEMP 96.4; O2SAT 98
[2016-09-29] MEDS: RESP: BUDESONIDE 0.25 MG/2 ML NEB NEB SCH (08:59)
[2016-09-29] MEDS: SODIUM CHLORIDE 0.9% FLUSH 10 ML FLUSH IV FLUSH SCH (09:00)
[2016-09-29] MEDS: LACTOBACILLUS ACIDOPHILUS 1 GM PACKET PO SCH ×2 (09:00→13:00)
[2016-09-29] MEDS: HYDROXYCHLOROQUINE SULFATE 200 MG TAB PO SCH (09:02)
[2016-09-29] MEDS: predniSONE 5 MG TAB PO SCH (09:04)
[2016-09-29] MEDS: DOCUSATE SODIUM 100 MG CAP PO SCH (09:05)
[2016-09-29] MEDS: ALBUTEROL SULFATE 90 MCG/ACT HFA 18 GM INHALER INH PRN (09:11)
[2016-09-29 10:12] LABS: AUTOMATED NEUTROPHIL # 4.2 TH/MM3 (1.8-7.7); BASOPHIL # 0.1 TH/MM3 (0-0.2); EOSINOPHIL # 0.1 TH/MM3 (0-0.4); EOSINOPHIL % 1.6 % (0.0-4.0); HEMATOCRIT 42.2 % (35.0-46.0); HEMO FLAGS DIFF FINAL; LYMPH % 24.2 % (9.0-44.0); LYMPHOCYTE # 1.7 TH/MM3 (1.0-4.8); MEAN CELL VOLUME 93.9 FL (80.0-100.0); MEAN CORPUSCULAR HEMOGLOBIN 31.9 PG (27.0-34.0); MONO % 13.4 % (0.0-8.0); NEUT % 59.8 % (16.0-70.0); PLATELET COUNT 290 TH/MM3 (150-450); RED CELL DISTRIBUTION WIDTH 14.7 % (11.6-17.2); WHITE BLOOD COUNT 7.1 TH/MM3 (4.0-11.0)
[2016-09-29 10:40] LABS: BICARBONATE 27.3 MEQ/L (21.0-32.0); POTASSIUM 3.6 MEQ/L (3.5-5.1)
--- NOTE | 2016-09-29 10:52 | HHI.PR ---
Subjective Remarks Follow-up for gastroenteritis. The patient is feeling much better today. She denies any further nausea, vomiting, diarrhea, or abdominal pain overnight. She is tolerating clear liquids and would like to advance to bland diet if possible. Objective Vitals Vital Signs Date Time Temp Pulse Resp B/P Pulse Ox O2 Delivery O2 Flow Rate FiO2 09/29/16 08:05 96.4 66 18 101/57 98 09/29/16 03:57 98.0 61 20 97/53 99 09/29/16 00:21 97.8 60 20 99/60 100 09/28/16 22:42 18 09/28/16 22:00 66 09/28/16 21:03 98 21 09/28/16 19:28 97.9 67 18 123/62 98 09/28/16 17:24 98.8 72 18 108/59 98 09/28/16 17:19 75 09/28/16 12:28 98.4 81 21 107/57 99 I/O 09/28/16 09/28/16 09/28/16 09/29/16 09/29/16 09/29/16 07:00 15:00 23:00 07:00 15:00 23:00 Intake Total 2000 ml Balance 2000 ml Intake Oral 1200 ml IV Total 800 ml # Voids 5 # Bowel Movements 4 Result Diagram: 09/29/16 0949 09/28/16 0632 Imaging Last Impressions Chest X-Ray 09/27/16 [id number] Signed Impressions: Service Date/Time: Tuesday, September 27, 2016 14:56 - CONCLUSION: 9 mm oval opacity projects over the right upper lung. Recommend further characterization and localization with CT thorax without contrast. Gordon Luna MD Abdomen/Pelvis CT 09/27/16 [id number] Signed Impressions: Service Date/Time: Tuesday, September 27, 2016 15:21 - CONCLUSION: Mild wall thickening and enhancement of the small intestinal tract which may represent an enteritis. No evidence of pathologic distention, extraluminal fluid collections or free air. Status post cholecystectomy and hysterectomy. Small hypodense lesions in the liver which are too small to characterize. Outpatient elective evaluation with MRI should be considered. Weston Han MD Objective Remarks GENERAL: Well-developed well-nourished. In no acute distress. SKIN: Warm and dry. No lesions noted. HEENT: Normocephalic. Pupils equal and round. Mucous membranes pink and moist. CARDIOVASCULAR: Regular rate and rhythm. No murmur appreciated. RESPIRATORY: No accessory muscle use. Clear to auscultation. Breath sounds equal bilaterally. GASTROINTESTINAL: Abdomen soft, non-tender, nondistended. Bowel sounds x4. MUSCULOSKELETAL: No obvious deformities. No clubbing or cyanosis. No edema. NEUROLOGICAL: Awake and alert. No focal neurological deficits. Moves upper and lower extremities spontaneously. Normal speech. PSYCHIATRIC: Appropriate mood and affect; insight and judgment normal. A/P Problem List: (1) Enteritis ICD Code: K52.9 Status: Acute (2) Hypokalemia ICD Code: E87.6 Status: Resolved (3) COPD (chronic obstructive pulmonary disease) ICD Code: J44.9 Status: Chronic Assessment and Plan 60 y/o patient with a history of Lupus, Small bowel dysmotility and COPD presented to the ED with complaints of nausea, vomiting, diarrhea, and abdominal pain for [address] shows mild wall thickening and enhancement of the small intestinal tract which may represent an enteritis. No evidence of pathologic distention, extraluminal fluid collections or free air. Status post cholecystectomy and hysterectomy. Small hypodense lesions in the liver which are too small to characterize. -Consulted GI for recommendations -PPI -IV Flagyl ordered by GI, change to oral -Follow up outpatient for lesions found on liver. -ADAT -C. difficile negative, further stool studies pending. -Leukocytosis has resolved Hypokalemia Potassium 2.9-->3.2-->3.6 -Stable. Resolved. COPD, chronic -Cont home medications Pulmicort, and Proair -Oxygen HS 2L Abnormal chest x ray Chest x-ray shows 9 mm oval opacity projects over the right upper lung. -Follow up chest CT as outpatient. Patient was made aware findings. DVT prophylaxis: SCDs Discharge Planning Possible discharge later today if patient remains stable and is able to tolerate diet. 1330 patient tolerating diet. Stool studies are negative to date. Discussed with GI, Dr. Mcdonough, patient is clear from GI for discharge on Flagyl. Ulisses Gil Sep 29, 2016 10:52
[2016-09-29 13:20] VITALS: BP 120/62; PULSE 72; RESP 18; TEMP 96.5; O2SAT 97
[2016-09-29] MEDS ORDERED: METR-1 PO (13:38)
[2016-09-29] MEDS ORDERED: LACTG PO (13:38)
[2016-09-29] MEDS ORDERED: ESOM1CAP16 PO (13:38)
[2016-09-29] MEDS ORDERED: metroNIDAZOLE 500 MG TAB PO SCH (14:00)
--- NOTE | 2016-09-29 14:27 | HHI.GIFU ---
Subjective Remarks Pt dressed in civilian clothes, waiting to go home. NO n/v, diarrhea, abdominal pain. She feels much better (Renee Damico) Objective Vitals I&O Vital Signs Date Time Temp Pulse Resp B/P Pulse Ox O2 Delivery O2 Flow Rate FiO2 09/29/16 13:20 96.5 72 18 120/62 97 09/29/16 08:05 96.4 66 18 101/57 98 09/29/16 03:57 98.0 61 20 97/53 99 09/29/16 00:21 97.8 60 20 99/60 100 09/28/16 22:42 18 09/28/16 22:00 66 09/28/16 21:03 98 21 09/28/16 19:28 97.9 67 18 123/62 98 09/28/16 17:24 98.8 72 18 108/59 98 09/28/16 17:19 75 I/O 09/28/16 09/28/16 09/28/16 09/29/16 09/29/16 09/29/16 07:00 15:00 23:00 07:00 15:00 23:00 Intake Total 2000 ml 360 ml Output Total 600 ml Balance 2000 ml -240 ml Intake Oral 1200 ml 360 ml IV Total 800 ml Output Urine Total 600 ml # Voids 5 # Bowel Movements 4 Laboratory Laboratory Tests Test 09/28/16 09/29/16 19:06 09:49 White Blood Count 7.9 7.1 Red Blood Count 4.77 4.50 Hemoglobin 15.2 14.4 Hematocrit 45.0 42.2 Mean Corpuscular Volume 94.3 93.9 Mean Corpuscular Hemoglobin 31.9 31.9 Mean Corpuscular Hemoglobin 33.8 34.0 Concent Red Cell Distribution Width 14.7 14.7 Platelet Count 324 290 Mean Platelet Volume 7.0 7.3 Neutrophils (%) (Auto) 77.5 59.8 Lymphocytes (%) (Auto) 14.7 24.2 Monocytes (%) (Auto) 7.2 13.4 Eosinophils (%) (Auto) 0.2 1.6 Basophils (%) (Auto) 0.4 1.0 Neutrophils # (Auto) 6.1 4.2 Lymphocytes # (Auto) 1.2 1.7 Monocytes # (Auto) 0.6 0.9 Eosinophils # (Auto) 0.0 0.1 Basophils # (Auto) 0.0 0.1 CBC Comment DIFF FINAL DIFF FINAL Differential Comment Sodium Level 139 Potassium Level 3.6 Chloride Level 104 Carbon Dioxide Level 27.3 Anion Gap 8 Blood Urea Nitrogen 7 Creatinine 0.79 Estimat Glomerular Filtration 75 Rate Random Glucose 122 Calcium Level 8.1 Date/Time Procedure Status Source Growth 09/28/16 19:49 Cryptosporidium Exam - Final Complete Stool Stool NEGATIVE - NO CRYPTOSPORIDIUM ANTIGEN... 09/28/16 19:49 Stool Pus (STEFFEN) - Final Complete Stool Stool NO WBC'S SEEN 09/28/16 19:49 Giardia Antigen (STEFFEN) - Final Complete Stool Stool NEGATIVE - NO GIARDIA ANTIGEN DETECTE... 09/28/16 19:49 Received Stool Stool Pending 09/27/16 16:50 Influenza Types A,B Antigen (STEFFEN) - Final Complete Nasal Washing NEGATIVE FOR FLU A AND B ANTIGEN.... Imaging Last Impressions Chest X-Ray 09/27/16 7507 Signed Impressions: Service Date/Time: Tuesday, September 27, 2016 14:56 - CONCLUSION: 9 mm oval opacity projects over the right upper lung. Recommend further characterization and localization with CT thorax without contrast. Gordon Luna MD Abdomen/Pelvis CT 09/27/16 [id number] Signed Impressions: Service Date/Time: Tuesday, September 27, 2016 15:21 - CONCLUSION: Mild wall thickening and enhancement of the small intestinal tract which may represent an enteritis. No evidence of pathologic distention, extraluminal fluid collections or free air. Status post cholecystectomy and hysterectomy. Small hypodense lesions in the liver which are too small to characterize. Outpatient elective evaluation with MRI should be considered. Weston Han MD Physical Exam HEENT: EOMI; normocephalic; atraumatic; no jaundice. NECK: Neck is supple CHEST: Chest is clear to auscultation and percussion. CARDIAC: Regular rate and rhythm with no murmur gallop or rubs. ABDOMEN: Soft, nondistended, nontender; no hepatosplenomegaly; bowel sounds are present in all four quadrants. EXTREMITIES: No clubbing, cyanosis, or edema. SKIN: Normal; no rash; no jaundice. INVESTMENT REPRESENTATIVE: No focal deficits; alert and oriented times three. (Renee Damico) Assessment and Plan Plan ASSESSMENT: - Gastroenteritis, N/V/D, Abdominal pain. Improved.. Sudden onset yesterday 2am with N/V/D, Abdominal pain. Ate out Monday night and had flores. Her daughter also has had GI issues since eating out Monday. Pt has associated fevers, chills, diaphoresis. Abdomen/Pelvis CT (09/27/16)----> Mild wall thickening and enhancement of the small intestinal tract which may represent an enteritis. No evidence of pathologic distention, extraluminal fluid collections for free air. Status post cholecystectomy and hysterectomy. Small hypodense lesions in the liver which are too small to characterize. Outpatient elective evaluation with MRI should be considered. She does have hx of Cdiff in past- last few years ago She was recently on Doxycycline in July for skin infection. No travel. + Suspicious food. + Suspicious sick contact. WBC down to 7.1 from 14.4. CDiff negative. stool cx neg. - Leukocytosis. WBC 7.1 down from 14.4. Is on chronic steroids and it is unclear at this time, if this is reactive, inflammatory, or related infection. - Hypokalemia, improved. - Lupus. Followed by Dr. Mark. She takes Plaquenil, Prednisone, Aleve for this at home. - Hx Small bowel dysmotility, diagnosed in 2005 at [facility] by [facility]. She was given octreotide injections to stimulate her bowel (2005). She took this for 6-7 years and states that she no longer needed this and therefore she was taken off of this. She had a GES prior to this and it was negative. She was seen by Dr. Simpson, but states that he no longer accepted her insurance and therefore she started seeing Dr. Lackey in [place]. Her last colonoscopy was May of 2015 and she reports that she had a few precancerous polyps removed and that she needed to have a repeat in 5 years. She also had an endoscopy done at that time and it showed gastritis. PLAN: - HUSEYIN - okay to d/c from GI standpoint if tolerating food - f/u in office - MR enterography in 4weeks - PT seen and examined by Dr. Mcdonough and myself and this note is written on her behalf (Renee Damico) Physician Comments seen, examined agree with above (Ita Mcdonough MD) Renee Damico Sep 29, 2016 14:27 Ita Mcdonough MD Sep 29, 2016 14:55
== END 2016-09-29 15:24 | disposition home or self-care (01) | DRG 392 ==
LOC: NEPE 12:34 → NEDA 16:53 → NEPHCDU 20:32 → OBSVTOIN 09-28 16:54
PROVIDERS: ADMIT Family Medicine; ATTEND Family Medicine
DX: K52.9 Noninfective gastroenteritis and colitis, unspecified (principal); J44.9 Chronic obstructive pulmonary disease, unspecified; E87.6 Hypokalemia; K21.9 Gastro-esophageal reflux disease without esophagitis; K29.70 Gastritis, unspecified, without bleeding; Z79.52 Long term (current) use of systemic steroids; F17.200 Nicotine dependence, unspecified, uncomplicated
CPT/HCPCS: 71010; 74177; 80048; 80053; 81001; 83690; 83735; 85025; 85610; 85730; 87205; 87328; 87329; 87493; 87506; 87804; 93005; 96361; 96374; C9113; G0378; G8987-GP; G8988-GP; J2405; J2765; J3480; J7030; J7512; J7626; Q9967

== ENCOUNTER 2016-12-25 11:47 | Observation (INO) | payer BC, MEDICARE ==
[~2016-12-25] VITALS: Ht 144.8 cm; Wt 60.1 kg
[2016-12-25] VITALS (8 sets, daily range): BP systolic 122–135; BP diastolic 61–81; PULSE 71–80; RESP 16–20; TEMP 97.8–98.2; O2SAT 95–99
[~2016-12-25 11:47] MED LIST changes: -ACIP20TA19 PO; -AMOX875 PO; -AZAT50 PO; -BIAX500T PO; +ESOM1CAP16 PO; +LACTG PO; +LORA-474 PO; -LYRI50CA2 PO; +METR-1 PO; +NAPR220T95 PO; -OMEP20CA5 PO; +PLAQ200T PO; -PRED5 PO; +PRED5TAB PO; -SYMBICORT INH; -TESS200C PO; -TYLE500T PO; +VITA100018 PO; +VITATAB11 PO; -[UNRECOGNIZED DRUG - CODE] SQ
[2016-12-25] MEDS ORDERED: SODIUM CHLOR 0.9% 1000 ML INJ 1,000 ML IV SCH (12:18)
[2016-12-25] MEDS: SODIUM CHLORIDE 0.9% FLUSH 10 ML FLUSH IV FLUSH PRN ×2 (12:29→13:41)
[2016-12-25] MEDS: ONDANSETRON HCL 4 MG/2 ML VIAL IVP ONE ×2 (12:30→12:33)
--- NOTE | 2016-12-25 12:33 | PD ---
HPI Chief Complaint: GI Complaint Time Seen by Provider: 12:01 Travel History International Travel<30 days: No Contact w/Intl Traveler<30days: No Traveled to known affect area: No History of Present Illness HPI Patient is a 61-year-old female who was sent to the emergency room by Dr. Axel Simpson for admission to the hospital. Patient has history of lupus, small bowel disability, COPD, reports that she is currently being treated with steroids as well as Octreotide for her symptoms. Patient reports that for the past 2-3 months, she has been maintaining a liquid diet, Reports that she needs Ativan 0.5 mg to help her to eat and to prevent nausea. Patient reports that Dr. Simpson recently increased her dose of prednisone from 7.5mg to 15mg. Patient reports that she is unable to tolerate this dose of steriod medications. Patient did take the 15mg dose of prednisone today. Reports that she talked to Dr. Simpson today and he told her to come to the ER and get admitted to the hospital for IVF and IV steroids under the hospitalist service. Patient reports that she has nausea and vomiting, reports that she has chronic abdominal pain. PFSH Past Medical History Arthritis: No Asthma: No Autoimmune Disease: No Blood Disorders: No Anxiety: Yes Depression: Yes Heart Rhythm Problems: No Cancer: No Cardiovascular Problems: Yes (MVP) High Cholesterol: No Chemotherapy: No Chest Pain: No Congestive Heart Failure: No COPD: No Diabetes: No Diminished Hearing: No Endocrine: No Gastrointestinal Disorders: Yes GERD: Yes Glaucoma: No Genitourinary: No Hepatitis: No Hiatal Hernia: Yes Hypertension: No Immune Disorder: Yes (LUPUS SYSTEMIC) Kidney Stones: No Musculoskeletal: Yes (2004 COMPRESSION FX THORACI SPINE R 10TH VERTEBRAE) Neurologic: Yes Psychiatric: No Reproductive: No Respiratory: Yes (wears 2L at night for desat) Myocardial Infarction: No Radiation Therapy: No Renal Failure: Yes (LUPUS INVOLVING THE KIDNEYS 1979) Seizures: Yes (2004 zoloft AND EFFEXOR RELATED) Sickle Cell Disease: No Sleep Apnea: No Thyroid Disease: No Ulcer: No Past Surgical History Abdominal Surgery: Yes (SM BOWEL RESECTION) AICD: No Cardiac Surgery: No Section: Yes Cholecystectomy: Yes Ear Surgery: No Endocrine Surgery: No Eye Surgery: No Genitourinary Surgery: No Gynecologic Surgery: Yes Hysterectomy: Yes Joint Replacement: No Oral Surgery: Yes (wisdom tooth extraction) Pacemaker: No Thoracic Surgery: No Other Surgery: Yes Social History Alcohol Use: No Tobacco Use: No (JUST QUIT ) Substance Use: No Allergies-Medications (Allergen,Severity, Reaction): Coded Allergies: Boniva (Verified Allergy, Severe, Shortness of Breath, 12/25/16) Effexor (Verified Allergy, Severe, 12/25/16) Levaquin (Verified Allergy, Severe, hives, 12/25/16) Sulfa (Verified Allergy, Intermediate, 12/25/16) Symbicort (Verified Allergy, Intermediate, respiratory distress, 12/25/16) Diflucan (Verified Adverse Reaction, Unknown, diarrheas, 12/25/16) Doxycycline (Verified Adverse Reaction, Unknown, c diff, 12/25/16) Reported Meds & Prescriptions Reported Meds & Active Scripts Active Reported Theratears Unit-Dose Opth Drops (Carboxymethylcellulose Sodium Opth Drops) 0.25 % Soln 1 Drop RIGHT EYE Q4H PRN Octreotide Acetate 50 Mcg/1 Ml Syringe 50 Mcg SQ HS Pulmicort Flexhaler (Budesonide Powder Inh) 180 Mcg/Act Inhp 180 Mcg INH Q12HR Proair Hfa 8.5 GM Inh (Albuterol Sulfate) 90 Mcg/Act Aer 2 Puff INH Q4-6H PRN 108 mcg/actuation Zantac (Ranitidine HCl) 150 Mg Tab 150 Mg PO BID Ativan (Lorazepam) 0.5 Mg Tab 0.5 Mg PO TID PRN Prednisone 5 Mg Tab 15 Mg PO DAILY Review of Systems General / Constitutional: No: Fever Eyes: No: Visual changes HENT: No: Headaches Cardiovascular: No: Chest Pain or Discomfort Respiratory: No: Shortness of Breath Gastrointestinal: Positive: Nausea, Vomiting, Abdominal Pain Genitourinary: No: Dysuria Musculoskeletal: No: Pain Skin: No Rash Neurologic: No: Weakness Psychiatric: No: Depression Endocrine: No: Polydipsia Hematologic/Lymphatic: No: Easy Bruising Physical Exam Narrative GENERAL: Mild distress SKIN: Focused skin assessment warm/dry. HEAD: Atraumatic. Normocephalic. EYES: Pupils equal and round. No scleral icterus. No injection or drainage. ENT: No nasal bleeding or discharge. Mucous membranes pink and moist. NECK: Trachea midline. No JVD. CARDIOVASCULAR: Regular rate and rhythm. No murmur appreciated. RESPIRATORY: No accessory muscle use. Clear to auscultation. Breath sounds equal bilaterally. GASTROINTESTINAL: Abdomen soft, non-tender, nondistended. Hepatic and splenic margins not palpable. MUSCULOSKELETAL: No obvious deformities. No clubbing. No cyanosis. No edema. NEUROLOGICAL: Awake and alert. No obvious cranial nerve deficits. Motor grossly within normal limits. Normal speech. PSYCHIATRIC: Appropriate mood and affect; insight and judgment normal. Data Data Last Documented VS Vital Signs Date Time Temp Pulse Resp B/P Pulse Ox O2 Delivery O2 Flow Rate FiO2 12/25/16 12:20 17 99 Room Air 12/25/16 12:02 80 123/69 12/25/16 11:50 97.9 Orders Complete Blood Count With Diff (12/25/16 12:18) Comprehensive Metabolic Panel (12/25/16 12:18) Lipase (12/25/16 12:18) Prothrombin Time / Inr (Pt) (12/25/16 12:18) Act Partial Throm Time (Ptt) (12/25/16 12:18) Urinalysis - C+S If Indicated (12/25/16 12:18) Iv Access Insert/Monitor (12/25/16 12:18) Ecg Monitoring (12/25/16 12:18) Oximetry (12/25/16 12:18) Ondansetron Inj (Zofran Inj) (12/25/16 12:30) Sodium Chlor 0.9% 1000 Ml Inj (Ns 1000 M (12/25/16 12:18) Sodium Chloride 0.9% Flush (Ns Flush) (12/25/16 12:30) Lorazepam Inj (Ativan Inj) (12/25/16 12:45) Methylprednisolone So Succ Inj (Solumedr (12/25/16 13:15) Consult Gastroenterology (12/25/16 ) Lorazepam (Ativan) (12/25/16 13:45) Thyroxine (T4) (12/25/16 13:49) Thyroid Stimulating Hormone (12/25/16 13:49) Consult Neurology (12/25/16 ) Octreotide Inj (Sandostatin Inj) (12/25/16 15:00) ^ Other Nursing Orders (12/25/16 13:49) Admit Order (Ed Use Only) (7/16/17 13:58) Labs Laboratory Tests Test 12/25/16 12/25/16 12:30 13:25 White Blood Count 12.3 TH/MM3 Red Blood Count 5.16 MIL/MM3 Hemoglobin 16.3 GM/DL Hematocrit 49.3 % Mean Corpuscular Volume 95.4 FL Mean Corpuscular Hemoglobin 31.6 PG Mean Corpuscular Hemoglobin 33.1 % Concent Red Cell Distribution Width 14.3 % Platelet Count 400 TH/MM3 Mean Platelet Volume 7.5 FL Neutrophils (%) (Auto) 90.1 % Lymphocytes (%) (Auto) 7.0 % Monocytes (%) (Auto) 2.3 % Eosinophils (%) (Auto) 0.0 % Basophils (%) (Auto) 0.6 % Neutrophils # (Auto) 11.1 TH/MM3 Lymphocytes # (Auto) 0.9 TH/MM3 Monocytes # (Auto) 0.3 TH/MM3 Eosinophils # (Auto) 0.0 TH/MM3 Basophils # (Auto) 0.1 TH/MM3 CBC Comment AUTO DIFF Differential Comment AUTO DIFF CONFIRMED Sodium Level 138 MEQ/L Potassium Level 4.7 MEQ/L Chloride Level 104 MEQ/L Carbon Dioxide Level 24.2 MEQ/L Anion Gap 10 MEQ/L Blood Urea Nitrogen 9 MG/DL Creatinine 0.71 MG/DL Estimat Glomerular Filtration 84 ML/MIN Rate Random Glucose 85 MG/DL Calcium Level 9.5 MG/DL Total Bilirubin 0.5 MG/DL Aspartate Amino Transf 19 U/L (AST/SGOT) Alanine Aminotransferase 26 U/L (ALT/SGPT) Alkaline Phosphatase 77 U/L Total Protein 7.7 GM/DL Albumin 3.9 GM/DL Lipase 107 U/L Thyroxine (T4) 11.2 MCG/DL Thyroid Stimulating Hormone 0.691 uIU/ML 3rd Gen Urine Color LIGHT-YELLOW Urine Turbidity CLEAR Urine pH 6.5 Urine Specific [place] 1.004 Urine Protein NEG mg/dL Urine Glucose (UA) NEG mg/dL Urine Ketones NEG mg/dL Urine Occult Blood NEG Urine Nitrite NEG Urine Bilirubin NEG Urine Urobilinogen LESS THAN 2.0 MG/DL Urine Leukocyte Esterase NEG Urine RBC LESS THAN 1 /hpf Urine WBC LESS THAN 1 /hpf Urine Bacteria RARE /hpf Urine Mucus FEW /lpf Microscopic Urinalysis Comment CULT NOT INDICATED MDM Medical Decision Making Medical Screen Exam Complete: Yes Emergency Medical Condition: Yes Interpretation(s) Vital Signs Date Time Temp Pulse Resp B/P Pulse Ox O2 Delivery O2 Flow Rate FiO2 12/25/16 12:02 80 18 123/69 98 Room Air 12/25/16 11:50 97.9 78 20 135/79 97 Room Air Differential Diagnosis Differential includes dehydration, electrolyte abnormality Narrative Course Patient is a 61-year-old female who presents to ER with c/o of dehydration with nausea and vomiting. Patient was sent to the ER by Dr. Simpson to be admitted to the hospital for intractable nausea and vomiting. Labs ordered. IVF and antiemetics ordered. Call made to Dr. Simpson case reviewed with Dr. Simpson, will see patient in ER. request IIV steroids, IVF , case reviewed with Dr. Swift who accepts pt to service Dr. Simpson request that I order ct of abdomen and pelvis to evaluate for renal mass seen on past ct studies Diagnosis Primary Impression: Intractable nausea and vomiting Qualified Code: R11.2 - Intractable vomiting with nausea, unspecified vomiting type Admitting Information Admitting Physician Requests: Admit Brenda Ochoa DO Dec 25, 2016 12:33
[2016-12-25] MEDS ORDERED: LORazepam 2 MG/ML VIAL IV PUSH ONE (12:45)
[2016-12-25] MEDS ORDERED: ALBUAER3 INH (12:49)
[2016-12-25] MEDS ORDERED: [UNRECOGNIZED DRUG - CODE] SQ (12:49)
[2016-12-25] MEDS ORDERED: ZANT150T2 PO (12:49)
[2016-12-25] MEDS ORDERED: PULM180I INH (12:49)
[2016-12-25] MEDS ORDERED: THERSOL2 RIGHT EYE (12:50)
[2016-12-25 13:10] LABS: AUTOMATED NEUTROPHIL # 11.1 TH/MM3 (1.8-7.7); BASOPHIL # 0.1 TH/MM3 (0-0.2); BASOPHIL % 0.6 % (0.0-2.0); HEMATOCRIT 49.3 % (35.0-46.0); LYMPHOCYTE # 0.9 TH/MM3 (1.0-4.8); MEAN CELL VOLUME 95.4 FL (80.0-100.0); MEAN CORPUSCULAR HEMOGLOBIN 31.6 PG (27.0-34.0); MEAN CORPUSCULAR HGB CONC 33.1 % (32.0-36.0); MONO % 2.3 % (0.0-8.0); NEUT % 90.1 % (16.0-70.0); RED BLOOD COUNT 5.16 MIL/MM3 (4.00-5.30); RED CELL DISTRIBUTION WIDTH 14.3 % (11.6-17.2); WHITE BLOOD COUNT 12.3 TH/MM3 (4.0-11.0)
[2016-12-25] MEDS ORDERED: methylPREDNISolone SOD SUCC 40 MG/1 ML VIAL IV PUSH ONE (13:15)
[2016-12-25 13:22] LABS: HEMO FLAGS AUTO DIFF; PLATELET COUNT 400 TH/MM3 (150-450)
[2016-12-25 13:29] LABS: ALKALINE PHOSPHATASE 77 U/L (45-117); TOTAL BILIRUBIN ADULT 0.5 MG/DL (0.2-1.0)
[2016-12-25 13:35] LABS: ALT (GPT) 26 U/L (10-53); ANION GAP 10 MEQ/L (5-15); AST (GOT) 19 U/L (15-37); BICARBONATE 24.2 MEQ/L (21.0-32.0); BLOOD UREA NITROGEN 9 MG/DL (7-18); CHLORIDE 104 MEQ/L (98-107); GLOMERULAR FILTRATION RATE 84 ML/MIN (>89); POTASSIUM 4.7 MEQ/L (3.5-5.1); SODIUM (NA) 138 MEQ/L (136-145)
[2016-12-25] MEDS ORDERED: LORazepam 0.5 MG TAB PO ONE ×2 (13:45→22:15)
[2016-12-25 13:50] LABS: BACTERIA, URINE RARE /hpf; BLOOD, URINE NEG (NEG); COMMENT (UR) CULT NOT INDICATED; CULTURE IF INDICATED CULT NOT INDICATED; GLUCOSE,URINE NEG (NEG); KETONE, URINE NEG (NEG); MUCUS URINE FEW /lpf (OCC); NITRITE,URINE NEG (NEG); PH, URINE 6.5 (5.0-8.5); URINE COLOR LIGHT-YELLOW (YELLW/STRAW)
[2016-12-25 13:56] LABS: SCAN/DIFF AUTO DIFF CONFIRMED
--- NOTE | 2016-12-25 14:33 | MB ---
cc: SHARON REAL MD, HARRY M.D. DATE OF CONSULTATION: 12/25/2016. REASON FOR CONSULTATION: The patient is a 61-year-old white female I was asked to see for further evaluation and management of nausea, vomiting and diarrhea. DATE OF : 1955. HISTORY OF PRESENT ILLNESS: The patient has lupus and documented autoimmune small bowel dysmotility. Diarrhea has been a chronic problem as a result. She had taken Octreotide for a period of eight years with good control of symptoms. This was stopped several years ago because of adenomatous colon polyps. The symptoms have gotten so bad that she finally resumed Octreotide just four days ago and has noticed improvement in the diarrhea. She still has episodes of nausea and vomiting and with the higher dose of Prednisone that was recently started, she has been throwing up the pill and has a sensation of dehydration. She went to [facility] yesterday and was given two liters of normal saline. She called me this morning saying she was having all of these symptoms and wanted to come into the hospital. PAST MEDICAL HISTORY: Her history is significant for: 1. Lupus. 2. Autoimmune small bowel dysmotility. 3. COPD. 4. Anxiety. 5. Depression. 6. Mitral valve prolapse. 7. Reflux disease. 8. Hiatal hernia. 9. History of a seizure disorder due to Zoloft and Effexor. PAST SURGICAL HISTORY: 1. section. 2. Cholecystectomy. 3. Hysterectomy. 4. Oral surgery. MEDICATIONS ON ADMISSION: 1. Octreotide 50 micrograms subcutaneous each evening at 9:00 p.m. 2. Pulmicort. 3. ProAir. 4. Zantac 150 milligrams twice a day. 5. Ativan 0.5 milligrams. She takes one-half to one tablet three times a day PRN and this helps nausea and anxiety and helps her sleep. 6. Prednisone 30 milligrams per day. ALLERGIES: 1. BONIVA. 2. EFFEXOR. 3. LEVAQUIN. 4. SULFA. 5. SYMBICORT. 6. DIFLUCAN. 7. DOXYCYCLINE. 8. ZOFRAN. 9. COMPAZINE WHICH CAUSED MORE NAUSEA. SOCIAL HISTORY: Tobacco use - none. Alcohol use - none. FAMILY HISTORY: Unremarkable for gastrointestinal problems. REVIEW OF SYSTEMS: She has had headaches. She has had paresthesias and pain in the lower extremities. She has involuntary muscle twitching of the shoulders and legs. She has had no vision difficulties. She denies dysphagia or odynophagia. She has had no palpitations or chest pains. No urinary symptomatology. Her weight is stable. She denies any liver disease or pancreatic disease. She tells me it has been quite some time since thyroid studies have been checked. She has poor adrenal function because of the chronic prednisone use (for 30 years) but the adrenals stopped producing cortisol adequately. PHYSICAL EXAMINATION: WEIGHT: On physical examination her weight is 60 kg. VITAL SIGNS: Temperature 97.9, pulse 78, respiratory 20, blood pressure 135/79. GENERAL: She is alert and oriented times three. HEAD, EYES, EARS, NOSE, THROAT: She is anicteric. She has a bit anxious. Extraocular motions are intact. LYMPHATIC: I appreciate no submandibular, cervical, supraclavicular, axillary or epitrochlear adenopathy. LUNGS: Clear to auscultation. HEART: Heart exam regular rate and rhythm with no gross murmur or gallop. ABDOMEN: Good bowel sounds. No appreciable bruit. The abdomen is soft with no focal tenderness. No masses or hepatosplenomegaly are noted. EXTREMITIES: No pedal edema Dupuytren's contractures or palmar erythema. LABORATORY FINDINGS: Today white count 12.3, hemoglobin 16.3, MCV 95.4, platelets 400,000. Sodium 138, potassium 4.7, BUN 9, creatinine 0.71. Liver enzymes and lipase all normal. The urinalysis is pending. IMPRESSION: 1. Autoimmune small bowel dysmotility. This has improved to some degree already over the past four days since resuming octreotide injections at 50 micrograms per day. This is to be continued. 2. Nausea with vomiting, especially with the increased dose of prednisone. Will admit her for IV steroids for the time being at a higher dose to suppress any autoimmune process. Once she tolerates a diet, she can be switched to oral steroids, possibly liquid formulation as she thinks she may have tolerated this better in the past. Will check for thyroid studies. We will ask for a neurology consult to evaluate the lower extremity paresthesias and pain as well as the muscle twitching and the recent headaches she has been experiencing (CT scan of the brain reportedly normal yesterday at [facility] After discharge, she will need a follow up bone density scan as it has been two years since her last exam. I will follow along closely. MD VINAY Rodriguez/BEATRIZ /1:50 PM /2:25 PM
[2016-12-25 14:53] LABS: THYROXINE (T4) 11.2 MCG/DL (4.8-13.9)
[2016-12-25] MEDS ORDERED: OCTREOTIDE INJ 50 MCG/ML AMP SQ ONE (15:00)
[2016-12-25] MEDS ORDERED: IOHEXOL 350 MG/ML 10 ML VIAL (for RAD DIAG) IV ONE (15:23)
--- NOTE | 2016-12-25 15:53 | RADRPT ---
EXAM DATE/TIME: 12/25/2016 15:19 [facility] COMPARISON: CT ABDOMEN & PELVIS W CONTRAST, September 27, 2016, 15:21. INDICATIONS : Nausea and vomiting. IV CONTRAST: 97 cc Omnipaque 350 (iohexol) IV ORAL CONTRAST: No oral contrast ingested. RADIATION DOSE: 9.96 CTDIvol (mGy) MEDICAL HISTORY : Seizures. Cardiovascular disease Lupus. SURGICAL HISTORY : Hysterectomy. Bowel resection. ENCOUNTER: Initial ACUITY: 1 day PAIN SCALE: 5/10 LOCATION: Bilateral abdomen. TECHNIQUE: Volumetric scanning of the abdomen and pelvis was performed. Using automated exposure control and ad justment of the mA and/or kV according to patient size, radiation dose was kept as low as reasonably achievable to obtain optimal diagnostic quality images. DICOM format image data is available electro nically for review and comparison. FINDINGS: CT Abdomen: There is a solid mass in the right kidney measuring 1.6 cm in size. The spleen, pancreas, left kidney, adrenals are unremarkable. There are tiny cysts in the liver the largest almost 9 mm in size no hepatic lobe. There is no evidence for any appreciable pathological adenopathy, free fluid, or bowel obstruction. Chronic vascular calcifications are present involving the aorta, iliac arterie s without any significant stenosis or aneurysmal dilatations for technique. CT pelvis: There is no evidence for mass, abscess formation, or any significant adenopathy within the pelvis. Approximate 1.4 cm bone island is present in the left iliac bone. There are scattered divert iculi mainly in the sigmoid colon without definite signs of diverticulitis. CONCLUSION: Right renal solid mass and renal cell carcinoma should be excluded. Jackie Chacon MD on December 25, 2016 at 15:40 Board Certified Radiologist. This report was verified electronically.
[2016-12-25] MEDS ORDERED: [UNRECOGNIZED DRUG - OTHER] RIGHT EYE PRN (16:00)
--- NOTE | 2016-12-25 16:15 | HHI.HP ---
[facility] Remington Otto MD Admission Diagnosis Intractable nausea and vomiting- lupus flare Diagnoses: Chief Complaint: Nausea Travel History International Travel<30 Days: No Contact w/Intl Traveler <30 Da: No Traveled to Known Affected Are: No History of Present Illness Patient is a 61-year-old female with known history of autoimmune small bowel motility on maintenance octreotide 50 g subcutaneous and maintenance dose of prednisone 7.5 mg daily which was recently increased. Patient for the past few days has been has been having increasing nausea unable to hold down food. She has been on octreotide 50 g at bedtime from 2005 since. Followed closely by Dr. Lezama. As stated steroid dependent. History of hyperreactive airway disease/COPD admitted because of persistent nausea. Patient does not really complain of any localized pain but some discomfort epigastric area Patient states that our motility drugs except Zofran really doesn't help MUCH and more effective for her is Ativan. However this time with persistent nausea and admitted for IV steroids. Dr. Simpson with the closely following along with us. Review of Systems Constitutional: DENIES: Diaphoretic episodes, Fatigue, Fever, Weight gain, Weight loss, Chills, Dizziness, Change in appetite, Night Sweats Endocrine: DENIES: Abnorml menstrual pattern, Heat/cold intolerance, Polydipsia , Polyuria, Polyphagia Eyes: DENIES: Blurred vision, Diplopia, Eye inflammation, Eye pain, Vision loss , Photosensitivity, Double Vision Ears, nose, mouth, throat: DENIES: Tinnitus, Hearing loss, Vertigo, Nasal discharge, Oral lesions, Throat pain, Hoarseness, Ear Pain, Running Nose, Epistaxis, Sinus Pain, Toothache, Odynophagia Respiratory: DENIES: Apneas, Cough, Snoring, Wheezing, Hemoptysis, Sputum production, Shortness of breath Cardiovascular: DENIES: Chest pain, Palpitations, Syncope, Dyspnea on Exertion , PND, Lower Extremity Edema, Orthopnea, Claudication Gastrointestinal: DENIES: Abdominal pain, Black stools, Bloody stools, Constipation, Diarrhea, Nausea, Vomiting, Difficulty Swallowing, Anorexia Genitourinary: DENIES: Abnormal vaginal bleeding, Dysmenorrhea, Dyspareunia, Sexual dysfunction, Urinary frequency, Urinary incontinence, Urgency, Hematuria , Dysuria, Nocturia, Vaginal discharge Musculoskeletal: DENIES: Joint pain, Muscle aches, Stiffness, Joint Swelling, Back pain, Neck pain Integumentary: DENIES: Abnormal pigmentation, Pruritus, Rash, Nail changes, Breast masses, Breast skin changes, Nipple discharge Hematologic/lymphatic: DENIES: Bruising, Lymphadenopathy Immunologic/allergic: DENIES: Eczema, Urticaria Neurologic: DENIES: Abnormal gait, Headache, Localized weakness, Paresthesias, Seizures, Speech Problems, Tremor, Poor Balance Psychiatric: COMPLAINS OF: Anxiety Past Family Social History Past Medical History 1. Lupus. 2. Autoimmune small bowel dysmotility. 3. COPD. 4. Anxiety. 5. Depression. 6. Mitral valve prolapse. 7. Reflux disease. 8. Hiatal hernia. 9. History of a seizure disorder due to Zoloft and Effexor. Past Surgical History 1. section. 2. Cholecystectomy. 3. Total abdominal Hysterectomy.-BSO 4. Oral surgery. Small bowel resection secondary to adhesions Reported Medications 1. Octreotide 50 micrograms subcutaneous each evening at 9:00 p.m. 2. Pulmicort. 3. ProAir. 4. Zantac 150 milligrams twice a day. 5. Ativan 0.5 milligrams. She takes one-half to one tablet three times a day PRN and this helps nausea and anxiety and helps her sleep. 6. Prednisone 30 milligrams per day. Allergies: Coded Allergies: Boniva (Verified Allergy, Severe, Shortness of Breath, 12/25/16) Effexor (Verified Allergy, Severe, 12/25/16) Levaquin (Verified Allergy, Severe, hives, 12/25/16) Sulfa (Verified Allergy, Intermediate, 12/25/16) Symbicort (Verified Allergy, Intermediate, respiratory distress, 12/25/16) Diflucan (Verified Adverse Reaction, Unknown, diarrheas, 12/25/16) Doxycycline (Verified Adverse Reaction, Unknown, c diff, 12/25/16) Family History Noncontributory Social History Still smokes half pack a day neck Denies alcohol use next by denies substance abuse Physical Exam Vital Signs Vital Signs Date Time Temp Pulse Resp B/P Pulse Ox O2 Delivery O2 Flow Rate FiO2 12/25/16 14:17 76 17 122/81 99 Room Air 12/25/16 12:20 17 99 Room Air 12/25/16 12:02 80 18 123/69 98 Room Air 12/25/16 11:50 97.9 78 20 135/79 97 Room Air Physical Exam GENERAL: Awake alert in no apparent distress. Dry oral mucosa SKIN: No rashes, ecchymoses or lesions. Cool and dry. HEAD: Atraumatic. Normocephalic. No temporal or scalp tenderness. EYES: Pupils equal round and reactive. Extraocular motions intact. No scleral icterus. No injection or drainage. ENT: Nose without bleeding, Throat without erythema, tonsillar hypertrophy or exudate. Uvula midline. Airway patent. NECK: Trachea midline. No JVD or lymphadenopathy. Supple, nontender, no meningeal signs. CARDIOVASCULAR: Regular rate and rhythm without murmurs, gallops, or rubs. RESPIRATORY: Clear to auscultation. Breath sounds equal bilaterally. No wheezes , rales, or rhonchi. GASTROINTESTINAL: Abdomen soft, non-tender, No hepato-splenomegaly, or palpable masses. No guarding. MUSCULOSKELETAL: Extremities without clubbing, cyanosis, or edema. No joint tenderness, effusion, or edema noted. No calf tenderness. Negative Homans sign bilaterally. NEUROLOGICAL: Awake and alert. Cranial nerves II through XII intact. Motor and sensory grossly within normal limits. Five out of 5 muscle strength in all muscle groups. Normal speech. Laboratory Laboratory Tests Test 12/25/16 12/25/16 12:30 13:25 White Blood Count 12.3 Red Blood Count 5.16 Hemoglobin 16.3 Hematocrit 49.3 Mean Corpuscular Volume 95.4 Mean Corpuscular Hemoglobin 31.6 Mean Corpuscular Hemoglobin 33.1 Concent Red Cell Distribution Width 14.3 Platelet Count 400 Mean Platelet Volume 7.5 Neutrophils (%) (Auto) 90.1 Lymphocytes (%) (Auto) 7.0 Monocytes (%) (Auto) 2.3 Eosinophils (%) (Auto) 0.0 Basophils (%) (Auto) 0.6 Neutrophils # (Auto) 11.1 Lymphocytes # (Auto) 0.9 Monocytes # (Auto) 0.3 Eosinophils # (Auto) 0.0 Basophils # (Auto) 0.1 CBC Comment AUTO DIFF Differential Comment AUTO DIFF CONFIRMED Sodium Level 138 Potassium Level 4.7 Chloride Level 104 Carbon Dioxide Level 24.2 Anion Gap 10 Blood Urea Nitrogen 9 Creatinine 0.71 Estimat Glomerular Filtration 84 Rate Random Glucose 85 Calcium Level 9.5 Total Bilirubin 0.5 Aspartate Amino Transf 19 (AST/SGOT) Alanine Aminotransferase 26 (ALT/SGPT) Alkaline Phosphatase 77 Total Protein 7.7 Albumin 3.9 Lipase 107 Thyroxine (T4) 11.2 Thyroid Stimulating Hormone 0.691 3rd Gen Urine Color LIGHT-YELLOW Urine Turbidity CLEAR Urine pH 6.5 Urine Specific [place] 1.004 Urine Protein NEG Urine Glucose (UA) NEG Urine Ketones NEG Urine Occult Blood NEG Urine Nitrite NEG Urine Bilirubin NEG Urine Urobilinogen LESS THAN 2.0 Urine Leukocyte Esterase NEG Urine RBC LESS THAN 1 Urine WBC LESS THAN 1 Urine Bacteria RARE Urine Mucus FEW Microscopic Urinalysis Comment CULT NOT INDICATED Result Diagram: 12/25/16 1230 12/25/16 1230 Assessment and Plan Assessment and Plan 61-year-old female with history of Autoimmune small bowel dysmotility in flare. History of lupus on chronic steroids maintenance 7.5 mg Prednisone We'll start patient on IV steroids as planned by GI Solu-Medrol 40 mg every 8 next continue on octreotide 50 g subcutaneous at bedtime Continue on lorazepam 0.5 mg 3 times a day Start gentle IV fluid GI will be following along with us Peripheral neuropathy - expressed to GI. neurology consulted Hyperreactive airway/COPD in remission continue on her maintenance medications of prior Pulmicort.smoking cessation Continue home meds Discussed Condition With Patient No Swift MD Dec 25, 2016 16:15
[2016-12-25] MEDS ORDERED: CARBOXYMETHYLCELL SOD 0.5% OPTH SOLN 15 ML BTL RIGHT EYE PRN ×2 (17:08→17:15)
[2016-12-25] MEDS: SODIUM CHLOR 0.9% 1000 ML INJ 1,000 ML IV SCH (17:13)
[2016-12-25] MEDS: PANTOPRAZOLE SODIUM 40 MG VIAL IV PUSH SCH (17:13)
[2016-12-25] MEDS ORDERED: OCTREOTIDE ACETATE SQ SCH (21:00)
[2016-12-25] MEDS ORDERED: BUDESONIDE 180 MCG INH SCH ×2 (21:00)
[2016-12-25] MEDS: ALBUTEROL SULFATE 90 MCG/ACT HFA 18 GM INHALER INH SCH ×2 (21:06→23:35)
[2016-12-25] MEDS: OCTREOTIDE INJ 50 MCG/ML AMP SQ SCH (21:06)
[2016-12-25] MEDS: methylPREDNISolone SOD SUCC 40 MG/1 ML VIAL IV PUSH SCH (21:07)
[2016-12-25] MEDS: LORazepam 0.5 MG TAB PO PRN (21:14)
[2016-12-25] MEDS ORDERED: ACETAMINOPHEN 325 MG TAB PO PRN (23:15)
[2016-12-26] VITALS (8 sets, daily range): BP systolic 105–135; BP diastolic 52–69; PULSE 52–68; RESP 16–18; TEMP 96.9–98.3; O2SAT 97–98
[2016-12-26] MEDS: SODIUM CHLOR 0.9% 1000 ML INJ 1,000 ML IV SCH ×3 (03:23→22:57)
[2016-12-26] MEDS: LORazepam 0.5 MG TAB PO PRN ×2 (04:44→12:51)
--- NOTE | 2016-12-26 05:39 | MB ---
cc: KAROL KAM M.D. DATE OF CONSULTATION December 25, 2016 HISTORY OF PRESENT ILLNESS A 61-year-old woman with a history of lupus for many years, autoimmune small bowel with dysmotility on octreotide, subcutaneous injections maintenance dose of prednisone 7.5 a day, increasing nausea, decreased p.o. She has been steroid dependent for years, some history of COPD. She has had some tingling in her feet and her hands which she tells me he had been going on for at least 2 months. She has had muscle twitching for 3 months, all extremities. Occasionally some twitching of her face when she is falling asleep, rare myoclonic jerks but not frequent. She just stopped plaque after being on it for 10 months about 3 days ago and generally is feeling better. She has had for the last month a pressure-type achy pain and across her forehead and on top of her head with some tenderness of her skull and tenderness in jaws, the latter of which has been going on for years. No tenderness in the temples, no vision loss. She had recent cataracts done in July of this year. PAST MEDICAL HISTORY 1. As above. 2. Anxiety, depression. 3. Mitral valve prolapse. 4. hiatal hernia. 5. She had a seizure remotely on Zoloft and Effexor; it was thought she might have serotonin syndrome. 6. I saw her back in 2011, had lupus since he was 21 years old. 7. 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 8. Hypercholesterolemia. 9. A generalized tonic-clonic seizure in 2004 on Effexor and Zoloft, antiseizure meds for a year or two, some EEG abnormalities then. She had some eye blurriness back in 2011, felt like her right eye was closed, says she had some twitching in her left eyelid, left corner of her mouth, occasionally her hands, small myoclonic jerks when she had been awake at that time. She has had a headache for several weeks 9/10 at times, pressure, achy all over her head at that time, some scalp tenderness she complained of. Her sed rate was 6. Her white count was 12. Her CPK and CRP were normal as was the TSH. She had a lupus anticoagulant done the past which was negative x 2. She had an ANAHI that was only 1-80, diffuse pattern. She had an MRI of the brain with and without contrast which was normal. She has some small white male change in the left frontal head region only and a similar one on the right. Diffusion image was negative. Chest x-ray showed some mild compression fractures. I thought over all at that time she looked well neurologically. I recommended 60 mg of prednisone if the lupus was thought to be active. I thought that if Dr. Otto felt strongly that lupus cerebritis was a possibility, we could do an LP. I recommended switching her antidepressant at that time. MEDICATION ALLERGIES BONIVA. EFFEXOR. LEVAQUIN. SULFA. SYMBICORT. DIFLUCAN. DOXYCYCLINE. MEDICATIONS 1. 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 2. Octreotide. 3. Pulmicort inhaler. 4. Zantac. 5. Ativan 0.5 t.i.d. p.r.n. 6. Prednisone 15 mg a day, although recently on 7.5. PHYSICAL EXAMINATION VITAL SIGNS: On exam afebrile, 74, 16, 126/63. NECK: There were no carotid bruits. HEART: Regular rhythm. I do not detect a murmur. NEUROLOGICAL EXAMINATION: Disks are sharp on the right, pupils status post cataract. Visual smith full. Extraocular movements intact, without nystagmus. Face is symmetric. Tongue was midline. Face sensation was intact. There is no temporal tenderness. There is no drift or asterixis. She had normal strength in upper and lower extremities bilaterally. DTRs are trace throughout. Toes are downgoing bilaterally. Pinprick was intact throughout including the feet and hands and face. She is not ataxic on [id number]. Speech is fluent. She is not aphasic. No apparent distress. Temples as noted were nontender. LABORATORY DATA Her white count 12.3, hematocrit 49, platelet count 400. Sed rates was 6 back in 2011. Evidently it was never elevated. RPR has been negative. The last ANAHI we have here was 1-640 back in 02/2012. Sj gren's A and B have been negative. Lion antibody 1.9, normal less than one. Double-stranded DNA, anti-striated muscle bodies, various other antibodies, acetylcholine receptor antibodies all negative. UA negative. Coags normal. Basic metabolic profile is normal. Normal LFTs, alk phos. Calcium was normal. Magnesium was normal in September of this year. Phosphorus was normal in 2005. CPK was normal in 2011. B12 was normal in 2012 as was the B6 and a thiamine. TSH normal. ABG was normal in 2012. IMAGING STUDIES She had abdominal CT scan done today, showed a right renal solid mass, rule out renal cell carcinoma. Chest x-ray - Some oval opacities right upper lung. Carotid ultrasound in 2012 normal. IMPRESSION I thought overall she looked well neurologically. They are calling a possible renal cell carcinoma on her abdominal CT. IMPRESSION I thought overall she looked well neurologically. No major neuropathy is noted. She may have some autonomic dysmotility of her GI tract and we did discuss possibly a pacemaker for that. She is not interested in it at this time. We will check some blood work on her, an MRI of the brain and MRA of the [place]. I did notify Dr. Simpson that there may be an abnormality in the kidney, possible renal cell carcinoma by CT and also a nodule. She will need a CT scan of her chest in addition. I would defer to the med team to order that. MD KRYSTEN Mcmillan/ANA /8:37 PM /5:17 AM
[2016-12-26] MEDS: ALBUTEROL SULFATE 90 MCG/ACT HFA 18 GM INHALER INH SCH ×4 (06:00→23:01)
[2016-12-26] MEDS: methylPREDNISolone SOD SUCC 40 MG/1 ML VIAL IV PUSH SCH ×3 (06:03→22:41)
[2016-12-26 06:48] LABS: APTT (PATIENT) 25.9 SEC (24.3-30.1)
[2016-12-26 07:01] LABS: RHEUMATOID FACTOR TRIGGER LESS THAN 10.0 IU/ML (0.0-14.9)
[2016-12-26 07:02] LABS: MAGNESIUM 2.1 MG/DL (1.5-2.5)
[2016-12-26 07:27] LABS: TOTAL PROTEIN SPE 5.7 GM/DL (6.0-7.6)
[2016-12-26 07:29] LABS: CREATINE KINASE 40 U/L (26-192)
--- NOTE | 2016-12-26 09:11 | RADRPT ---
EXAM DATE/TIME: 12/26/2016 08:42 [facility] COMPARISON: MRA BRAIN W/O CONTRAST, March 10, 2012, 21:03. INDICATIONS : Stroke. MEDICAL HISTORY : Lupus. SURGICAL HISTORY : Cholecystectomy. Hysterectomy. ENCOUNTER: Initial ACUITY: 2 day PAIN SCORE: 0/10 LOCATION: head Please note a normal MRA of the brain does not entirely exclude the possibility of a small aneurysm, nor the possibility of distal intracranial vessel disease. TECHNIQUE: 3D time of flight MRA was performed. Source images, multiplanar STS MIP, and 3D volume MIP reconstru ctions were reviewed. FINDINGS: There is excellent visualization of the major intracranial arteries out to the second-order branch ve ssels. There is no evidence for aneurysm, vessel truncation or stenosis, and no evidence for vascula r malformation. 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 CONCLUSION: 1. Patent intracranial vessels without evidence for large vessel occlusion or aneurysm. Yifan Culver MD on December 26, 2016 at 9:06 Board Certified Radiologist. This report was verified electronically.
[2016-12-26] MEDS ORDERED: GADODIAMIDE PF 287 MG/ML 5 ML VIAL (for RAD MRI) IV ONE (09:12)
--- NOTE | 2016-12-26 09:23 | RADRPT ---
EXAM DATE/TIME: 12/26/2016 08:42 [facility] COMPARISON: MRI BRAIN W & W/O CONTRAST, March 10, 2012, 21:03. INDICATIONS : Stroke. CONTRAST: 11 cc Omniscan (gadodiamide) IV MEDICAL HISTORY : Lupus. SURGICAL HISTORY : Cholecystectomy. Hysterectomy. ENCOUNTER: Initial ACUITY: 2 day PAIN SCORE: 0/10 LOCATION: head TECHNIQUE: Multiplanar, multisequence MRI of the brain was performed both prior to and following the administrat ion of paramagnetic contrast. FINDINGS: CEREBRUM: The ventricles are normal for age. No evidence of midline shift, mass lesion, hemorrhage or acute in farction. No extraaxial fluid collections are seen. The pituitary gland and suprasellar cistern are normal in configuration. WHITE MATTER: A few scattered bright T2 signal abnormalities are seen in the white matter. POSTERIOR FOSSA: The cerebellum and brainstem are intact. The 4th ventricle is midline. The cerebellopontine angle is unremarkable. The cerebellar tonsils are normal in position. DIFFUSION IMAGING: No focal areas of restricted diffusion are seen. No evidence of acute infarction. EXTRACRANIAL: The visualized portions of the orbits and paranasal sinuses are unremarkable. POST-CONTRAST: No abnormal areas of parenchymal or dural enhancement. No evidence of blood-brain barrier breakdown. CONCLUSION: 1. Minimal nonspecific white matter changes. 2. No acute infarction. Eduard Lundy MD on December 26, 2016 at 9:13 Board Certified Radiologist. This report was verified electronically.
--- NOTE | 2016-12-26 11:54 | HHI.GIFU ---
GI Follow-up Note Consult Follow-up Subjective: Patient sitting in bed comfortably, no new complaints. The nausea has improved; the diarrhea has improved. 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 Available Data (labs, X- Rays, Procedues) : Radiologic studies reviewed; CT suggests a renal cell cancer; Dr. Swift to coordinate urology evaluation. ASSESSMENT/PLAN:Stable from GI standpoint. Dr. Swift is to discuss the patient with Dr. Otto today. It was a pleasure seeing Karina Biswas. Entered by: Axel Chau MD Dec 26, 2016 11:54
[2016-12-26 14:47] LABS: ANA SCREEN POS (NEG)
--- NOTE | 2016-12-26 15:08 | HHI.PR ---
Subjective Remarks feeling better diet advance today by GI now anxious about the renal mass incidentally found in CT Objective Vitals Vital Signs Date Time Temp Pulse Resp B/P Pulse Ox O2 Delivery O2 Flow Rate FiO2 12/26/16 12:00 97.9 65 18 129/64 97 12/26/16 08:00 97.3 58 18 125/58 97 12/26/16 04:00 Room Air 12/26/16 04:00 98.1 68 18 115/56 98 12/26/16 00:00 Room Air 12/26/16 00:00 97.9 61 18 135/68 97 12/25/16 20:00 Room Air 12/25/16 20:00 98.1 71 18 130/61 96 12/25/16 17:31 98.2 74 16 126/63 97 12/25/16 17:05 97.8 72 18 134/65 98 12/25/16 16:58 72 18 134/65 95 I/O 12/25/16 12/25/16 12/25/16 12/26/16 12/26/16 12/26/16 07:00 15:00 23:00 07:00 15:00 23:00 Intake Total 886 ml 360 ml Output Total 100 ml Balance -100 ml 886 ml 360 ml Intake IV Total 886 ml 360 ml Output Urine Total 100 ml # Voids 1 3 1 # Bowel Movements 0 0 Result Diagram: 12/25/16 1230 12/25/16 1230 Imaging Last Impressions Head Magnetic Resonance Angiography 12/26/162038 Signed Impressions: Service Date/Time: Monday, December 26, 2016 08:42 - CONCLUSION: 1. Patent intracranial vessels without evidence for large vessel occlusion or aneurysm. Yifan Culver MD Brain MRI 12/26/162038 Signed Impressions: Service Date/Time: Monday, December 26, 2016 08:42 - CONCLUSION: 1. Minimal nonspecific white matter changes. 2. No acute infarction. Eduard Lundy MD Abdomen/Pelvis CT 12/25/16 1456 Signed Impressions: Service Date/Time: Sunday, December 25, 2016 15:19 - CONCLUSION: Right renal solid mass and renal cell carcinoma should be excluded. Jackie Chacon MD Objective Remarks awake and alert, NAD anicteric lungs clear regular rhythmn abdomen soft, nontender extremities no edema A/P Assessment and Plan 61-year-old female with history of Autoimmune small bowel dysmotility in flare. History of lupus on chronic steroids maintenance 7.5 mg daily on IV steroids as planned by GI Solu-Medrol 40 mg every 8 - decrease to q 12 continue on octreotide 50 g subcutaneous at bedtime Continue on lorazepam 0.5 mg 3 times a day Diet advance to mechanical GI will be following along with us BMs better C diff negative Peripheral neuropathy - expressed to GI. seen by Jostin Mulligan Hyperreactive airway/COPD in remission continue on her maintenance medications of prior Pulmicort.smoking cessation Anxiety Disorder- continue home regimen - Ativan 0.5 mg po tid and 1.5 mg hs Incidental right renal mass- Urology consult here to establish- - OP ff up I called and spoke with Dr. Otto - rheumatology - if does well overnight- DC on Prednisone 60 mg po daily. Patient to ff up with him. next few days for taper Script - for Prednisone 20 mg 3 tabs daily #60 If tolerates diet- DC tomorrow No Swift MD Dec 26, 2016 15:08
[2016-12-26] MEDS ORDERED: PRED20 PO ×2 (16:04→16:13)
[2016-12-26] MEDS: PANTOPRAZOLE SODIUM 40 MG VIAL IV PUSH SCH (17:10)
[2016-12-26] MEDS ORDERED: PILL SPLITTER OTHER PRN (17:30)
[2016-12-26] MEDS: LORazepam 1 MG TAB PO SCH (21:41)
[2016-12-26] MEDS: OCTREOTIDE INJ 50 MCG/ML AMP SQ SCH (22:42)
[2016-12-27 03:26] VITALS: BP 133/80; PULSE 66; RESP 16; TEMP 96.3; O2SAT 97
[2016-12-27] MEDS: LORazepam 0.5 MG TAB PO PRN ×3 (03:26→14:57)
[2016-12-27] MEDS: ALBUTEROL SULFATE 90 MCG/ACT HFA 18 GM INHALER INH SCH ×3 (05:50→18:19)
[2016-12-27 08:00] VITALS: BP 109/59; PULSE 60; RESP 18; TEMP 97; O2SAT 98
--- NOTE | 2016-12-27 08:17 | HHI.GIFU ---
GI Follow-up Note Consult Follow-up Subjective: Patient laying in bed comfortably, no new complaints; she's tolerating her diet. The nausea is much better. No bowel movement since admission. 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 Available Data (labs, X- Rays, Procedues) : No new labs. ASSESSMENT/PLAN:1. Diarrhea resolved; she's to continue the octreotide injections, 50mcg/day. 2. Nausea is better with higher dose steroids; when changing to po, consider the liquid formulation instead of a pill. 3. Apparent renal cell cancer; urology consult requested. It was a pleasure seeing Karina Biswas. Entered by: Axel Chau MD Dec 27, 2016 08:17
[2016-12-27] MEDS: methylPREDNISolone SOD SUCC 40 MG/1 ML VIAL IV PUSH SCH (09:31)
--- NOTE | 2016-12-27 11:31 | HHI.PR ---
Subjective Remarks Patient reports feeling better today. She is tolerating her diet. No nausea or vomiting. Awaiting urology consult. Objective Vitals Vital Signs Date Time Temp Pulse Resp B/P Pulse Ox O2 Delivery O2 Flow Rate FiO2 12/27/16 08:00 97.0 60 18 109/59 98 12/27/16 03:26 96.3 66 16 133/80 97 12/26/16 23:20 96.9 52 16 112/55 97 12/26/16 21:34 Room Air 12/26/16 21:30 97.9 66 16 117/69 97 12/26/16 20:26 98.3 66 18 105/52 97 12/26/16 16:00 98.1 68 18 124/62 97 12/26/16 12:00 97.9 65 18 129/64 97 I/O 12/26/16 12/26/16 12/26/16 12/27/16 12/27/16 12/27/16 07:00 15:00 23:00 07:00 15:00 23:00 Intake Total 886 ml 840 ml 75 ml 810 ml Output Total 600 ml 800 ml Balance 886 ml 240 ml 75 ml 10 ml Intake Oral 480 ml 240 ml IV Total 886 ml 360 ml 75 ml 570 ml Output Urine Total 600 ml 800 ml # Voids 1 4 # Bowel Movements 0 0 Result Diagram: 12/25/16 1230 12/25/16 1230 Imaging Last Impressions Head Magnetic Resonance Angiography 12/26/162038 Signed Impressions: Service Date/Time: Monday, December 26, 2016 08:42 - CONCLUSION: 1. Patent intracranial vessels without evidence for large vessel occlusion or aneurysm. Yifan Culver MD Brain MRI 12/26/162038 Signed Impressions: Service Date/Time: Monday, December 26, 2016 08:42 - CONCLUSION: 1. Minimal nonspecific white matter changes. 2. No acute infarction. Eduard Lundy MD Abdomen/Pelvis CT 12/25/16 0706 Signed Impressions: Service Date/Time: Sunday, December 25, 2016 15:19 - CONCLUSION: Right renal solid mass and renal cell carcinoma should be excluded. Jackie Chacon MD Objective Remarks GENERAL: This is a well-nourished, well-developed patient, in no apparent distress. CARDIOVASCULAR: Normal rate and regular rhythm without murmurs, gallops, or rubs. RESPIRATORY: Good respiratory efforts. Breath sounds equal and clear to auscultation bilaterally. GASTROINTESTINAL: Abdomen soft, non-tender, non-distended. Normal active bowel sounds MUSCULOSKELETAL: Extremities without cyanosis, or edema. NEURO: Alert & Oriented x4 to person, place, time, situation. Moves all ext x4 PSYCH: Appropriate mood and affect. A/P Problem List: (1) Enteritis ICD Code: K52.9 Status: Acute (2) Intractable nausea and vomiting ICD Code: R11.2 Status: Acute (3) COPD (chronic obstructive pulmonary disease) ICD Code: J44.9 Status: Chronic Assessment and Plan 61-year-old female with Autoimmune small bowel dysmotility flare. History of lupus on chronic steroids maintenance 7.5 mg daily Patient initially on IV steroids, Solu-Medrol 40 mg every 8 - decrease to q 12. Transition to 60 mg PO daily. continue on octreotide 50 g subcutaneous at bedtime Continue on lorazepam 0.5 mg 3 times a day Patient tolerating a diet. GI following C diff negative Previous hospitalist spoke with the patient's dry paste supervisor, Dr. Otto who recommends discharging the patient on prednisone 60 mg daily and to follow-up with him in the clinic. Incidental right renal mass- ?Renal cell cancer, unclear how long this has been present. Patient reports she had some abnormalities on her kidney back in September of this year but she was not able to elaborate what it was. Urology consulted. Awaiting input from urology whether or not workup and treatment can be done outpatient. Hyperreactive airway/COPD in remission continue on her maintenance medications of prior Pulmicort.smoking cessation Anxiety Disorder- continue home regimen - Ativan 0.5 mg po tid and 1.5 mg hs DW RN and CM Discharge Planning Pending urologist input. Problem Qualifiers (1) Intractable nausea and vomiting: Qualified Code: R11.2 - Intractable vomiting with nausea, unspecified vomiting type Tyesha Hooks MD Dec 27, 2016 11:31
[2016-12-27 12:00] VITALS: BP 115/69; PULSE 73; RESP 18; TEMP 97.4; O2SAT 96
--- NOTE | 2016-12-27 13:19 | MB ---
cc: BALAJI SHIELDS MD DATE OF CONSULTATION: 12/27/2016 REASON FOR CONSULTATION 1.6 cm right upper pole renal mass suspicious for renal cell carcinoma. HISTORY OF PRESENT ILLNESS The patient is a 61-year-old female with a history of lupus and autoimmune small bowel motility on maintenance octreotide and prednisone 7.5 mg daily, who was admitted after a three-day history of increasing nausea and vomiting. She also had some mild epigastric pain as well as some right-sided pain for the last four months. She denied fevers, chills, hematuria or dysuria. The patient had a CT of the abdomen and pelvis with and without contrast on admission and was found to have an incidental 1.6 cm right upper pole renal mass suspicious for renal cell carcinoma. Urology was subsequently consulted for this finding. The patient does have a history of smoking in the past and does still smoke an occasional cigarette. She has lost several pounds of weight but denies any unusual bone or back pain. She has a history of urinary tract infections but only gets them occasionally. She denies a history of kidney stones. She has had multiple abdominal surgeries in the past including lysis of adhesions, laparoscopic cholecystectomy and surgery for small bowel obstruction. She denies taking any blood thinners and does not bleed easily. Denies any family history of bleeding disorders. REVIEW OF SYSTEMS See HPI. All systems reviewed were otherwise negative. PAST MEDICAL HISTORY 1. Lupus. 2. Autoimmune small bowel dysmotility. 3. COPD. 4. Anxiety. 5. Depression. 6. Mitral valve prolapse. 7. Hiatal hernia. 8. History of seizure disorder. PAST SURGICAL HISTORY 1. Total abdominal hysterectomy. 2. Cholecystectomy. 3. section. 4. Small bowl resection secondary to adhesions. MEDICATIONS Home medications include: 1. Pulmicort. 2. ProAir. 3. Octreotide. 4. Zantac. 5. Ativan. 6. Prednisone 30 mg daily. ALLERGIES 1. BONIVA. 2. EFFEXOR. 3. LEVAQUIN. 4. SULFA. 5. SYMBICORT. 6. DIFLUCAN. 7. DOXYCYCLINE. FAMILY HISTORY Denies urolithiasis or genitourinary malignancies. SOCIAL HISTORY Smokes half pack a day. Denies any alcohol or illicit drug use. She is a retired nurse. PHYSICAL EXAMINATION VITAL SIGNS: Temperature 97, pulse 60, respiratory rate 18, BP 109/59. Satting 98% on room air. GENERAL: She is alert and oriented x3, in no apparent distress, pleasant, cooperative, appears her stated age. HEAD: Normocephalic, atraumatic. EYES: No scleral icterus. Extraocular muscles intact. NECK: Supple. Trachea is midline. No JVD. SKIN: No ulcers or rashes. Mucous membranes are pink and moist. LUNGS: Clear to auscultation bilaterally. No wheezes, rales or rhonchi. HEART: Regular rate and rhythm. No murmurs, gallops or rubs. ABDOMEN: Soft, nontender, nondistended. She does have several large surgical scars including a midline scar from her sternum to her pubic bone. EXTREMITIES: Nontender. No clubbing, cyanosis or edema. PELVIC: Exam not indicated at this time. PSYCHIATRIC: Normal affect. NEUROLOGIC: Cranial nerves II through XII intact. Strength 5/5 in all four extremities. LABORATORY White count 4.3, hemoglobin 16.3, hematocrit 49.3, platelet count 400. Sodium 138, potassium 47, chloride 104, bicarb 24.2, BUN 9, creatinine 0.71, calcium 9.5. IMAGING CT abdomen and pelvis with and without contrast was reviewed. Images reviewed. Agree with radiologist's report. The patient has an incidental solid 1.6 cm right upper pole renal mass suspicious for renal cell carcinoma. ASSESSMENT The patient is a 61-year-old female with a history of lupus admitted with nausea, vomiting and abdominal pain and found to have an incidental 1.6 cm right upper pole renal mass suspicious for renal cell carcinoma. PLAN 1. Will obtain an MRI of the abdomen with and without contrast to get a clear picture of this right upper pole renal mass. 2. If the MRI is conclusive for a solid renal mass I discussed treatment options with her including active surveillance with repeat imaging in 4-6 months to monitor for change in size versus cryoablation by interventional radiology versus surgical removal of the mass. I discussed the advantages, disadvantages, potential side effects and complications of each. Due to her significant medical history and surgical history I do not think she is the best surgical candidate at this time and she tends to agree. However, I did discuss with her that it may be her only option if it is unable to be treated by the radiology department and it tends to grow in size. If at some point she needs surgical removal of the mass I would recommend her going to a tertiary center like [facility] or the [facility] due to her extensive medical history. 3. Once the MRI is completed it is okay for her to be discharged home and she can follow-up as an outpatient in my office. Thank you for this consult. Please call with any questions. Balaji Shields MD EMGeorge/BT /12:47 PM /1:01 PM
[2016-12-27 16:00] VITALS: BP 118/68; PULSE 70; RESP 16; TEMP 97.9; O2SAT 98
[2016-12-27] MEDS ORDERED: PANTOPRAZOLE SOD 40 MG DELAYED RELEASE TAB PO SCH (17:00)
[2016-12-27] MEDS ORDERED: predniSONE 10 MG TAB PO ONE ×2 (18:00→21:00)
[2016-12-27 20:00] VITALS: BP 125/68; PULSE 73; RESP 16; TEMP 97.8; O2SAT 99
[2016-12-27 21:32] LABS: ALBUMIN SPE 3.39 GM/DL (3.50-5.00); ALPHA 1 GLOBULIN 0.19 GM/DL (0.11-0.29); ALPHA 2 GLOBULIN 0.72 GM/DL (0.22-1.00); BETA GLOBULINS (SPE) 0.59 GM/DL (0.53-1.03)
[2016-12-27] MEDS: OCTREOTIDE INJ 50 MCG/ML AMP SQ SCH (23:36)
[2016-12-28] VITALS: BP 121/60; PULSE 52; RESP 16; TEMP 97.2; O2SAT 98
[2016-12-28] MEDS: ALBUTEROL SULFATE 90 MCG/ACT HFA 18 GM INHALER INH SCH ×3 (00:28→12:28)
[2016-12-28] MEDS: LORazepam 1 MG TAB PO SCH (00:29)
[2016-12-28] MEDS: LORazepam 0.5 MG TAB PO PRN ×2 (03:59→12:27)
[2016-12-28 04:00] VITALS: BP 136/76; PULSE 68; RESP 18; TEMP 96.8; O2SAT 97
[2016-12-28 08:00] VITALS: BP 138/80; PULSE 78; RESP 18; TEMP 98.4; O2SAT 99
[2016-12-28] MEDS ORDERED: predniSONE 20 MG TAB PO SCH (09:00)
--- NOTE | 2016-12-28 09:46 | HHI.GIFU ---
GI Follow-up Note Consult Follow-up Subjective: Patient laying in bed comfortably. states nausea resolved. No diarrhea (or BM"s-but passing gas). Objective: PHYSICAL EXAMINATION: Vitals signs stable No fever CARDIAC: Regular rate and rhythm with no murmur gallop or rubs. ABDOMEN: Soft, nondistended, nontender; no hepatosplenomegaly; bowel sounds are present in all four quadrants. EXTREMITIES: No clubbing, cyanosis, or edema. SKIN: no jaundice. TERRITORY SALES CONSULTANT: alert and oriented times three. Available Data (labs, X- Rays, Procedures) : for MRI today ASSESSMENT/PLAN: 1 autoimmune small bowel dysmotility 2. Nausea-resolved 3. Diarrhea-resolved. + flatus but no BM today 4. kidney lesion-MRI pending PLAN: 1. doing well from GI standpoint 2. hopefully she can be d/c soon--f/u with Dr. Simpson as outpt It was a pleasure seeing Karina Biswas. Thank you for this consult. Entered by: Mauri Larkin MD Dec 28, 2016 09:46
--- NOTE | 2016-12-28 09:51 | HHI.DS ---
Discharge Summary Admission Date Dec 25, 2016 at 13:59 Discharge Date: Dec 28, 2016 Admitting Diagnosis Intractable nausea and vomiting- lupus flare (1) Enteritis ICD Code: K52.9 (2) Intractable nausea and vomiting ICD Code: R11.2 (3) COPD (chronic obstructive pulmonary disease) ICD Code: J44.9 Procedures None Brief History - From Admission History of present illness from the admitting physician Patient is a 61-year-old female with known history of autoimmune small bowel motility on maintenance octreotide 50 g subcutaneous and maintenance dose of prednisone 7.5 mg daily which was recently increased. Patient for the past few days has been has been having increasing nausea unable to hold down food. She has been on octreotide 50 g at bedtime from 2005 since. Followed closely by Dr. Lezama. As stated steroid dependent. History of hyperreactive airway disease/COPD admitted because of persistent nausea. Patient does not really complain of any localized pain but some discomfort epigastric area Patient states that our motility drugs except Zofran really doesn't help MUCH and more effective for her is Ativan. However this time with persistent nausea and admitted for IV steroids. Dr. Simpson with the closely following along with us. CBC/BMP: 12/25/16 1230 12/25/16 1230 Significant Findings Laboratory Tests Test 12/25/16 12/25/16 12/26/16 12:30 13:25 06:00 White Blood Count 12.3 TH/MM3 (4.0-11.0) Hemoglobin 16.3 GM/DL (11.6-15.3) Hematocrit 49.3 % (35.0-46.0) Neutrophils (%) (Auto) 90.1 % (16.0-70.0) Lymphocytes (%) (Auto) 7.0 % (9.0-44.0) Neutrophils # (Auto) 11.1 TH/MM3 (1.8-7.7) Lymphocytes # (Auto) 0.9 TH/MM3 (1.0-4.8) Estimat Glomerular Filtration 84 ML/MIN (>89) Rate Urine Bacteria RARE /hpf (NONE) Urine Mucus FEW /lpf (OCC) Anti-Nuclear Antibody Screen POS (NEG) Total Protein 5.7 GM/DL (6.0-7.6) Albumin 3.39 GM/DL (3.50-5.00) Imaging Last Impressions Abdomen MRI 12/28/16 0000 Signed Impressions: Service Date/Time: Wednesday, December 28, 2016 11:12 - CONCLUSION: The mass seen in the right kidney has low signal on both the T1 and the T2 images suspicious for a complicated cyst. I can demonstrate no significant enhancement after IV contrast. Since there was some question of a solid nature on the CT scan follow up MRI of the right kidney is recommended in one year. Multiple lesions in the liver consistent with benign cysts. Kiran Ugarte MD Head Magnetic Resonance Angiography 12/26/162038 Signed Impressions: Service Date/Time: Monday, December 26, 2016 08:42 - CONCLUSION: 1. Patent intracranial vessels without evidence for large vessel occlusion or aneurysm. Yifan Culver MD Brain MRI 12/26/162038 Signed Impressions: Service Date/Time: Monday, December 26, 2016 08:42 - CONCLUSION: 1. Minimal nonspecific white matter changes. 2. No acute infarction. Eduard Lundy MD Abdomen/Pelvis CT 12/25/16 1456 Signed Impressions: Service Date/Time: Sunday, December 25, 2016 15:19 - CONCLUSION: Right renal solid mass and renal cell carcinoma should be excluded. Jackie Chacon MD PE at Discharge GENERAL: This is a well-nourished, well-developed patient, in no apparent distress. CARDIOVASCULAR: Normal rate and regular rhythm without murmurs, gallops, or rubs. RESPIRATORY: Good respiratory efforts. Breath sounds equal and clear to auscultation bilaterally. GASTROINTESTINAL: Abdomen soft, non-tender, non-distended. Normal active bowel sounds MUSCULOSKELETAL: Extremities without cyanosis, or edema. NEURO: Alert & Oriented x4 to person, place, time, situation. Moves all ext x4 PSYCH: Appropriate mood and affect. Pt update on day of discharge Patient reports she is feeling great. She is anxious to go home. No abdominal pain, nausea, or vomiting. She is tolerating her diet. Hospital Course 61-year-old female admitted and treated for the following: Autoimmune small bowel dysmotility flare. History of lupus on chronic steroids maintenance 7.5 mg daily Patient initially on IV steroids, Solu-Medrol 40 mg every 8 - decrease to q 12. Transition to 60 mg PO daily. continue on octreotide 50 g subcutaneous at bedtime Continue on lorazepam 0.5 mg 3 times a day Patient tolerating a diet. GI following C diff negative Previous hospitalist spoke with the patient's banking officer, Dr. Otto who recommends discharging the patient on prednisone 60 mg daily and to follow-up with him in the clinic. Incidental right renal mass- - Urology was consulted. MRI was done, recommendation for a repeat MRI in one year. Patient will follow-up with urology outpatient. Hyperreactive airway/COPD in remission continue on her maintenance medications of prior Pulmicort.smoking cessation Anxiety Disorder- continue home regimen - Ativan 0.5 mg po tid and 1.5 mg hs Pt Condition on Discharge: Good Discharge Disposition: Discharge Home Discharge Time: <= 30 minutes Discharge Instructions DIET: Follow Instructions for: As Tolerated, No Restrictions Activities you can perform: Regular-No Restrictions Follow up Referrals: Rheumatology - 2-3 Days with FARHAN New Medications: Prednisone (Prednisone) 20 Mg Tab 60 MG PO DIRECTED take 3 tab daily AUTOimm #60 Ref 0 TAB Continued Medications: Albuterol 8.5 GM Inh (Proair Hfa 8.5 GM Inh) 90 Mcg/Act Aer 2 PUFF INH Q4-6H 108 mcg/actuation PRN SHORTNESS OF BREATH #1 Ref 0 INHALER Budesonide Powder Inh (Pulmicort Flexhaler) 180 Mcg/Act Inhp 180 MCG INH Q12HR Asthma Management #1 Ref 0 INHALER Carboxymethylcellulose Sodium Opth Drops (Theratears Unit-Dose Opth Drops) 0.25 % Soln 1 DROP RIGHT EYE Q4H PRN DRY EYE #1 Ref 0 BOX Lorazepam (Ativan) 0.5 Mg Tab 0.5 MG PO TID PRN ANXIETY Ref 0 TAB Octreotide Acetate (Octreotide Acetate) 50 Mcg/1 Ml Syringe 50 MCG SQ HS Ranitidine (Zantac) 150 Mg Tab 150 MG PO BID Reduce Stomach Acid #60 Ref 0 TAB Tyesha Hooks MD Dec 28, 2016 09:51
--- NOTE | 2016-12-28 09:51 | HHI.DCPOC ---
Discharge Care Plan Diagnosis: (1) Enteritis (2) Intractable nausea and vomiting (3) autoimm Goals to Promote Your Health * To prevent worsening of your condition and complications * To maintain your health at the optimal level Directions to Meet Your Goals Take your medications as prescribed Follow your dietary instruction Follow activity as directed Keep your appointments as scheduled Take your immunizations and boosters as scheduled If your symptoms worsen call your PCP, if no PCP go to Urgent Care Center or Emergency Room Smoking is Dangerous to Your Health. Avoid second hand smoke Call the 24-hour hour crisis hotline for domestic abuse at Tyesha Hooks MD Dec 28, 2016 09:51
[2016-12-28] MEDS ORDERED: GADODIAMIDE PF 287 MG/ML 10 ML VIAL (for RAD MRI) IV ONE (12:14)
--- NOTE | 2016-12-28 12:43 | RADRPT ---
EXAM DATE/TIME: 12/28/2016 11:12 [facility] COMPARISON: No Prior CT scan September 2016, December 2016. Use for comparison. INDICATIONS : Liver masses, renal mass. CONTRAST: 10 cc Omniscan (gadodiamide) IV MEDICAL HISTORY : Lupus. Anxiety. SURGICAL HISTORY : Cholecystectomy. Hysterectomy. section. ENCOUNTER: Initial ACUITY: 2 day PAIN SCORE: 0/10 LOCATION: Abdomen TECHNIQUE: Multiplanar, multisequence magnetic resonance imaging of the abdomen was performed without and with i ntravenous contrast. FINDINGS: MRI of the abdomen was performed. In the superior anterior cortex fo the right kidney there is an ab normal area of signal. The lesion is actually difficult to measure on the axial images because it is adjacent to the liver parenchyma but it is approximately 1.2 cm across. The lesion is hypo-intense to renal parenchyma on the T2 image. On the T2 image it measures 1.2 x 1.4 cm across. The rest of t he right kidney is unremarkable. The left kidney is unremarkable. There are four benign cysts withi n the liver. No concerning liver mass identified. Portal vein is patent. The adrenal glands are both unremarkable. Dynamic images show no abnormal areas of enhancement within the right kidney. The area felt to be so lid really shows no significant enhancement. On the coronal reformats on the delayed images the lesi on is hypo-intense to renal parenchyma measuring 11 mm across. Based on its density on the CT scan I suspect this is a complicated cyst. CONCLUSION: The mass seen in the right kidney has low signal on both the T1 and the T2 images suspicious for a co mplicated cyst. I can demonstrate no significant enhancement after IV contrast. Since there was so me question of a solid nature on the CT scan follow up MRI of the right kidney is recommended in one year. Multiple lesions in the liver consistent with benign cysts. Kiran Ugarte MD on December 28, 2016 at 12:17 Board Certified Radiologist. This report was verified electronically.
== END 2016-12-28 13:16 | disposition home or self-care (01) ==
LOC: NEPC 11:47 → NEDA 13:59 → N04B 17:39 → HOCB 12-26 21:12
PROVIDERS: ADMIT Family Medicine; ATTEND Family Medicine
DX: K52.9 Noninfective gastroenteritis and colitis, unspecified (principal); M32.9 Systemic lupus erythematosus, unspecified; J44.9 Chronic obstructive pulmonary disease, unspecified; F41.9 Anxiety disorder, unspecified; K21.9 Gastro-esophageal reflux disease without esophagitis; Z79.52 Long term (current) use of systemic steroids; Z79.899 Other long term (current) drug therapy; G62.9 Polyneuropathy, unspecified; F32.9 Major depressive disorder, single episode, unspecified; R51 Headache; R20.9 Unspecified disturbances of skin sensation; R25.3 Fasciculation; E78.00 Pure hypercholesterolemia, unspecified; N28.89 Other specified disorders of kidney and ureter; R10.13 Epigastric pain; Z87.891 Personal history of nicotine dependence
CPT/HCPCS: 70544; 70553; 74177; 74183; 80053; 81001; 82550; 82607; 83690; 83735; 83921; 84100; 84165; 84436; 84443; 85025; 85610; 85652; 85730; 86038; 86039; 86140; 86430; 96361; 96374; 99285; A9579; C9113; G0378; J2354; J2920; J7030; J7512; Q9967; J2405